=== PATIENT | female | born 1975 | race Caucasian/White ===

== ENCOUNTER → 2022-02-14 12:52 | Outpatient (CLI) | payer SELFPAY ==
--- NOTE | ~2022-02-14 | MM_ITS ---
EXAMINATION: MM screening [facility] BI w pooja HISTORY: Screening mammogram TECHNIQUE: Craniocaudal and mediolateral oblique 3-D tomosynthesis images were obtained and synthetic 2-D images were generated. CAD analysis was submitted and interpreted. COMPARISON: 03/17/2019 bilateral screening mammogram BREAST PARENCHYMAL COMPOSITION: There are scattered areas of fibroglandular density. FINDINGS: Stable fibroglandular asymmetry There is no evidence of suspicious mass, calcification, or architectural distortion to suggest malignancy in either breast. There has been no suspicious interva l change. IMPRESSION: 1. No mammographic evidence of malignancy. 2. Recommend routine screening mammography in one year. BI-RADS Category 2: Benign finding(s). Reviewed, dictated and finalized at location A.
== END ==
PROVIDERS: PCP Physician Assistant Medical; Visit Provider Nurse Practitioner
DX: Z12.31 Encounter for screening mammogram for malignant neoplasm of breast (principal)
CPT/HCPCS: 77063; 77067

== ENCOUNTER → 2023-06-08 12:13 | Outpatient (CLI) | payer SELFPAY ==
--- NOTE | ~2023-06-08 | MM_ITS ---
EXAMINATION: MM screening [facility] BI w pooja HISTORY: Screening TECHNIQUE: Craniocaudal and mediolateral oblique 3-D tomosynthesis images were obtained and synthetic 2-D images were generated. CAD analysis was submitted and interpreted. COMPARISON: Comparison to multiple prior studies sequentially, with oldest reviewed study dated 03/17. BREAST PARENCHYMAL COMPOSITION: There are scattered areas of fibroglandular density. FINDINGS: There is no evidence of suspicious mass, calcification, or architectural distortion to sugg est malignancy in either breast. There has been no suspicious interval change. IMPRESSION: 1. No mammographic evidence of malignancy. 2. Recommend routine screening mammography in one year. BI-RADS Category 1: Negative Reviewed, dictated and finalized at location A. 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
== END ==
PROVIDERS: PCP Nurse Practitioner; Visit Provider Nurse Practitioner
DX: Z12.31 Encounter for screening mammogram for malignant neoplasm of breast (principal)
CPT/HCPCS: 77063; 77067

== ENCOUNTER 2024-02-10 04:42 | Inpatient (IN) | payer OTHER, SELFPAY ==
[2024-02-10] VITALS (18 sets, daily range): BP systolic 130–183; BP diastolic 79–108; PULSE 78–103; RESP 16–18; TEMP 36.6–37.4; O2SAT 94–100; BMI 32.8
--- NOTE | ~2024-02-10 | XR_ITS ---
EXAMINATION: XR_FLGTUBINS_CR DATE: 02/10/2024 14:28 INDICATION: Small bowel obstruction. TECHNIQUE: I placed a nasogastric tube under fluoroscopic guidance. The fluoroscopy exposure time was 0.5 minutes. The number of images was 1. COMPARISON: CT abdomen and pelvis 02/10/2024 FINDINGS: The nasogastric tube tip is in the stomach. IMPRESSION: 1. Fluoroscopy guided nasogastric tube placement with tip in the stomach. Reviewed, dictated and finalized at location A.
--- NOTE | ~2024-02-10 | CT_ITS ---
EXAMINATION: CT abdomen pelvis w con DATE: 02/10/2024 06:39 INDICATION: Upper abdominal pain. Nausea, vomiting, and diarrhea. TECHNIQUE: Computed tomography (CT) of the abdomen and pelvis was performed with 100 mL Omnipaque 350 intravenous contrast. Automated exposure control and iterative reconstruction technique were employe d. The dose-length product was 617.00 mGy-cm. COMPARISON: None. FINDINGS: The visualized portions of the lung bases demonstrate mild atelectasis. No pleural effusion . The heart size is normal. No pericardial effusion. There is a small sliding hiatal hernia. The live r, gallbladder, spleen, pancreas, adrenal glands, and right kidney are normal. There is a 5 mm cyst i n left kidney. There are bilateral inguinal hernias containing fat. There is a 3.2 cm cyst in left ov stan, likely a follicular cyst. The appendix is normal. There are multiple dilated loops of bowel with transition point in the terminal ileum. There are no pathologically enlarged lymph nodes. There is n o free intraperitoneal fluid. There is mild thoracic spondylosis. IMPRESSION: 1. Small bowel obstruction with transition point in the terminal ileum. Reviewed, dictated and finalized at location A.
--- NOTE | ~2024-02-10 | XR_ITS ---
XR abdomen obstructive series Ordering provider: Titus Arriola MD History: . PARTIAL SBO . Comparison: None. FINDINGS: BOWEL: Nasogastric tube is seen with the tip into the duodenum. Nonobstructive bowel gas pattern. ORGANOMEGALY: None. SIGNIFICANT PATHOLOGIC CALCIFICATIONS: None. OTHER: Atelectatic changes in the lung bases. No free air is seen under the diaphragm. IMPRESSION: NO ACUTE ABDOMINAL FINDINGS. Reviewed, dictated and finalized at location A.
--- NOTE | ~2024-02-10 | XR_ITS ---
EXAMINATION: XR sm bowel follow through DATE: 02/12/2024 12:07 INDICATION: Small bowel obstruction. TECHNIQUE: Oral contrast was administered, and a time course of radiographs of the abdomen was obtain ed. Fluoroscopy of the small bowel was noted performed. Fluoroscopy exposure time was 0 minutes. The total number of images was 6. COMPARISON: CT abdomen and pelvis 02/10/2024 FINDINGS: The nasogastric tube tip is in the stomach. There are multiple dilated loops of small bowel. Transit time from the stomach to proximal colon was approximately 3 hours. IMPRESSION: 1. Dilated small bowel with delayed passage of contrast to the colon, consistent with distal partial obstruction versus adynamic ileus. Reviewed, dictated and finalized at location A. IMPRESSION: 1. Dilated small bowel with delayed passage of contrast to the colon, consisten t with distal partial obstruction versus adynamic ileus.
[2024-02-10 05:21] LABS: Basophils Absolute Auto 0.1 K/mm3 (0.0-0.1); Basophils Percent Auto 0.5 % (0.2-1.2); Eosinophils Absolute Auto 0.1 K/mm3 (0-0.3); Eosinophils Percent Auto 0.9 % (0-4.4); Hematocrit 43.4 % (37.0-47.0); Hemoglobin 14.5 g/dL (12.0-15.0); Immature Granulocyte Absolute 0.04 K/mm3 (0.00-0.031); Immature Granulocyte Percent A 0.4 % (0-0.5); Lymphocytes Absolute Auto 1.04 K/mm3 (0.9-3.2); Lymphocytes Percent Auto 10.3 % (18.3-44.2); Mean Corpuscular HGB Conc 33.4 g/dl (32-36); Mean Corpuscular Volume 89.9 fl (80-100); Mean Platelet Volume 10.2 fl (7.4-10.4); Monocytes Absolute Auto 0.5 K/mm3 (0.1-0.6); Monocytes Percent Auto 4.5 % (2.6-8.5); Neutrophils Absolute Auto 8.4 K/mm3 (1.3-6.7); Neutrophils Percent Auto 83.4 % (45.5-73.1); Platelet Count Result 242 k/mm3 (150-375); Red Blood Count 4.83 M/mm3 (4.2-5.4); Red Cell Distribution Width 13.7 % (11.5-14.5); White Blood Count 10.1 K/mm3 (4.5-10.0)
[2024-02-10] MEDS: METOCLOPRAMIDE HCL INJ 10 MG/2 ML VIAL IV PUSH (05:25)
[2024-02-10] MEDS: diphenhydrAMINE HCl INJ 50 MG/ML VIAL 25 MG IV PUSH (05:25)
--- NOTE | 2024-02-10 05:29 | ED.NAVMDI ---
HPI - Nausea/Vomiting/Diarrhea General Chief complaint: Nausea/Vomiting/Diarrhea <Nahum Almaguer MD - Last Filed: 02/21/24 22:49> Stated complaint: n/v <Nahum Almaguer MD - Last Filed: 02/21/24 22:49> Time Seen by Provider: 02/10/24 04:47 <Nahum Almaguer MD - Last Filed: 02/21/24 22:49> History of Present Illness HPI Narrative: This is a 49-year-old female with a past medical history significant for prior pancreatitis from drinking. Today she presents to the emergency room with a chief complaint of sudden onset epigastric abdominal pain, nauseousness, vomiting and slight diarrhea. Patient states the abdominal pain was all of a sudden last night. She did have a glass of wine prior to the onset. She states she started waking up and developing nauseousness with persistent vomiting as well as chills. She had an episode diarrhea earlier today as well. Denies any new foods, medication changes, illnesses or injuries. She is otherwise in her normal state of health and no one at home has similar symptoms. Denies any chest pain, shortness a breath, headache, vision changes, neuropathy, weakness or fatigue. No recent travel. Endorses having abdominal surgeries with a but otherwise has all her organs. <Nahum Almaguer MD - Last Filed: 02/21/24 22:49> Related Data Home medications: Home Medications Medication Instructions Recorded Confirmed ferrous sulfate 324 mg (65 mg 324 mg PO DAILY 05/14/22 02/10/24 iron) tablet,delayed release <Nahum Almaguer MD - Last Filed: 02/21/24 22:49> Allergies/Adverse reactions: Allergies Allergy/AdvReac Type Severity Reaction Status Date / Time prochlorperazine Allergy Severe Muscle Verified 02/10/24 05:25 Spasms <Nahum Almaguer MD - Last Filed: 02/21/24 22:49> Review of Systems Review of Systems: As reviewed above in HPI <Nahum Almaguer MD - Last Filed: 02/21/24 22:49> [facility] Past Medical History Medical History: Medical History Anemia Anxiety Anxiety delivery delivered x3 Chronic daily headache began in her teens Gestational hypertension HTN (hypertension), benign <Nahum Almaguer MD - Last Filed: 02/21/24 22:49> Family History Family History: Family History Father Diabetes mellitus Mother Hypertension Grandparent Cerebrovascular accident Mother Hypertension Father Family history of diabetes mellitus in first degree relative <Nahum Almaguer MD - Last Filed: 02/21/24 22:49> Social History Social History: Social History Social History: Patient denies tobacco or drug use. Alcohol use as mentioned above. She lives at home with her and 3 children. Full code. She nominates her to be the individual who would make medical decisions for her if she is unable. 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 Mucous membranes moist. NECK: Supple. CHEST: [Clear to auscultation. No respiratory distress.] HEART: [Regular rate and rhythm]. No murmur heard. [Normal peripheral pulses.] ABDOMEN: [Soft, nondistended], reproducible tenderness to palpation in the epigastrium, left flank tenderness, CVA tenderness, [No rigidity or guarding] EXTREMITIES: Normal range of motion. [No edema.] SKIN: Warm, dry, no rash. NEURO: [No focal deficits]. Alert and oriented [x3.] PSYCH: [Normal mood and affect.] <Nahum Almaguer MD - Last Filed: 02/21/24 22:49> Course Vital Signs Vital signs: Vital Signs Temperature 36.6 C 02/10/24 04:59 Pulse Rate 78 02/10/24 04:59 Respiratory Rate 16 02/10/24 04:59 Blood Pressure 178/107 H 02/10/24 04:59 Pulse Oximetry 100 02/10/24 04:59 Oxygen Delivery Room Air 02/10/24 04:59 Temperature 36.7 C 02/14/24 14:00 Pulse Rate 62 02/14/24 14:00 Respiratory Rate 18 02/14/24 14:00 Blood Pressure 119/78 02/14/24 14:00 Pulse Oximetry 100 02/14/24 14:00 Oxygen Delivery Room Air 02/14/24 09:26 <Nahum Almaguer MD - Last Filed: 02/21/24 22:49> Vital Signs Temperature 36.6 C 02/10/24 04:59 Pulse Rate 78 02/10/24 04:59 Respiratory Rate 16 02/10/24 04:59 Blood Pressure 178/107 H 02/10/24 04:59 Pulse Oximetry 100 02/10/24 04:59 Oxygen Delivery Room Air 02/10/24 04:59 Temperature 36.7 C 02/14/24 14:00 Pulse Rate 62 02/14/24 14:00 Respiratory Rate 18 02/14/24 14:00 Blood Pressure 119/78 02/14/24 14:00 Pulse Oximetry 100 02/14/24 14:00 Oxygen Delivery Room Air 02/14/24 09:26 <Ashely Gross MD - Last Filed: 02/10/24 08:34> MDM - Nausea/Vomiting/Diarrhea MDM Narrative Medical decision making narrative: This is a 49-year-old female with a history of previous pancreatitis who presents to the emergency department for nausea, vomiting, epigastric abdominal pain. Patient is retching throughout the encounter and has multiple episodes of vomiting. She has tenderness in the epigastrium as well as CVA tenderness on left side but denies any urinary complaints or vaginal issues. No fever, chills, other infectious symptoms. No at home with similar symptoms. Differential diagnosis at this time includes gastroenteritis, gastritis, food poisoning, cyclic vomiting, less likely pancreatitis or other intra-abdominal process. CBC, CMP, lipase, test, UA and CT abdomen pelvis was ordered. She is given Reglan Benadryl and hydromorphone for symptomatic control. Patient CT abdomen pelvis shows a small bowel obstruction with transition point at the terminal ileum. Patient was re-evaluated she had improvement from a nausea and pain perspective. I have paged out the general surgeon to discuss case management with them. NG tube was ordered for low intermittent suctioning. Patient was signed out at 7:[address] Gross pending consultation to surgery and admission to the hospital. <Nahum Almaguer MD - Last Filed: 02/21/24 22:49> This is a 49-year-old female with a history of previous pancreatitis who presents to the emergency department for nausea, vomiting, epigastric abdominal pain. Patient is retching throughout the encounter and has multiple episodes of vomiting. She has tenderness in the epigastrium as well as CVA tenderness on left side but denies any urinary complaints or vaginal issues. No fever, chills, other infectious symptoms. No at home with similar symptoms. Differential diagnosis at this time includes gastroenteritis, gastritis, food poisoning, cyclic vomiting, less likely pancreatitis or other intra-abdominal process. CBC, CMP, lipase, test, UA and CT abdomen pelvis was ordered. She is given Reglan Benadryl and hydromorphone for symptomatic control. Patient CT abdomen pelvis shows a small bowel obstruction with transition point at the terminal ileum. Patient was re-evaluated she had improvement from a nausea and pain perspective. I have paged out the general surgeon to discuss case management with them. NG tube was ordered for low intermittent suctioning. Patient was signed out at 7:[address] Gross pending consultation to surgery and admission to the hospital. Patient declined NG tube placement and was adamant about it. Dr. Wilosn was notified <Ashely Gross MD - Last Filed: 02/10/24 08:34> Lab Data Result diagrams: 02/11/24 05:52 02/13/24 05:21 <Nahum Almaguer MD - Last Filed: 02/21/24 22:49> Labs: Lab Results 02/10/24 02/10/24 02/10/24 Range/Units 05:11 05:12 06:16 WBC 10.1 H (4.5-10.0) K/mm3 RBC 4.83 (4.2-5.4) M/mm3 Hgb 14.5 (12.0-15.0) g/dL Hct 43.4 (37.0-47.0) % MCV 89.9 (80-100) fl MCH 30.0 (26-34) pg MCHC 33.4 (32-36) g/dl RDW 13.7 (11.5-14.5) % Plt Count 242 (150-375) k/mm3 MPV 10.2 (7.4-10.4) fl Immature Gran % (Auto) 0.4 (0-0.5) % Neut % (Auto) 83.4 H (45.5-73.1) % Lymph % (Auto) 10.3 L (18.3-44.2) % Gaines % (Auto) 4.5 (2.6-8.5) % Eos % (Auto) 0.9 (0-4.4) % Baso % (Auto) 0.5 (0.2-1.2) % Lymph # (Auto) 1.04 (0.9-3.2) K/mm3 Gaines # (Auto) 0.5 (0.1-0.6) K/mm3 Eos # (Auto) 0.1 (0-0.3) K/mm3 Baso # (Auto) 0.1 (0.0-0.1) K/mm3 Abs Immat Gran (auto) 0.04 H (0.00-0.031) K/mm3 Absolute Neuts (auto) 8.4 H (1.3-6.7) K/mm3 Absolute Nucleated RBC 0.000 (0.0-0.012) K/mm3 Nucleated RBC % 0.0 (0.0-0.2) % Sodium 136 L (137-145) mmol/L Potassium 4.1 (3.4-5.0) mmol/L Chloride 103 (98-107) mmol/L Carbon Dioxide 22 (22-30) mmol/L Anion Gap 11 (4-12) mmol/L BUN 13 (7-17) mg/dL Creatinine 0.80 (0.7-1.0) mg/dL Estim Creat Clear Calc 78 ml/min Estimated GFR > 60 (59 - ) Glucose 145 H (65-110) mg/dL Calcium 10.4 H (8.4-10.2) mg/dL Total Bilirubin 0.4 (0.2-1.3) mg/dL AST 24 (14-36) U/L ALT 16 (6-35) U/L Alkaline Phosphatase 72 (38-126) U/L Total Protein 8.0 (6.3-8.2) g/dL Albumin 4.8 (3.5-5.1) g/dL Lipase 71 (23-300) U/L Urine Color (Yellow) Urine Appearance (Clear) Urine pH (5.0-9.0) Ur Specific [place] (1.001-1.035) Urine Protein (Negative) mg/dL Urine Glucose (UA) (Negative) mg/dL Urine Ketones (Negative) mg/dL Ur Blood (Man) (Negative) Urine Nitrate (Negative) Urine Bilirubin (Negative) Urine Urobilinogen (<2.0) mg/dL Leukocyte Esterase Rfl (Negative) MEAGHAN/UL Urine RBC (0-2) /hpf Urine WBC (0-3) /hpf Ur Squamous Epith Cells (Few) /hpf Urine Bacteria /hpf Urine Casts POC Urine HCG, Qual Negative POC Ur Preg QC Yes 02/10/24 Range/Units 06:17 WBC (4.5-10.0) K/mm3 RBC (4.2-5.4) M/mm3 Hgb (12.0-15.0) g/dL Hct (37.0-47.0) % MCV (80-100) fl MCH (26-34) pg MCHC (32-36) g/dl RDW (11.5-14.5) % Plt Count (150-375) k/mm3 MPV (7.4-10.4) fl Immature Gran % (Auto) (0-0.5) % Neut % (Auto) (45.5-73.1) % Lymph % (Auto) (18.3-44.2) % Gaines % (Auto) (2.6-8.5) % Eos % (Auto) (0-4.4) % Baso % (Auto) (0.2-1.2) % Lymph # (Auto) (0.9-3.2) K/mm3 Gaines # (Auto) (0.1-0.6) K/mm3 Eos # (Auto) (0-0.3) K/mm3 Baso # (Auto) (0.0-0.1) K/mm3 Abs Immat Gran (auto) (0.00-0.031) K/mm3 Absolute Neuts (auto) (1.3-6.7) K/mm3 Absolute Nucleated RBC (0.0-0.012) K/mm3 Nucleated RBC % (0.0-0.2) % Sodium (137-145) mmol/L Potassium (3.4-5.0) mmol/L Chloride (98-107) mmol/L Carbon Dioxide (22-30) mmol/L Anion Gap (4-12) mmol/L BUN (7-17) mg/dL Creatinine (0.7-1.0) mg/dL Estim Creat Clear Calc ml/min Estimated GFR (59 - ) Glucose (65-110) mg/dL Calcium (8.4-10.2) mg/dL Total Bilirubin (0.2-1.3) mg/dL AST (14-36) U/L ALT (6-35) U/L Alkaline Phosphatase (38-126) U/L Total Protein (6.3-8.2) g/dL Albumin (3.5-5.1) g/dL Lipase (23-300) U/L Urine Color Yellow (Yellow) Urine Appearance Clear (Clear) Urine pH 7.0 (5.0-9.0) Ur Specific [place] 1.020 (1.001-1.035) Urine Protein 1+ H (Negative) mg/dL Urine Glucose (UA) Negative (Negative) mg/dL Urine Ketones Trace H (Negative) mg/dL Ur Blood (Man) 2+ H (Negative) Urine Nitrate Negative (Negative) Urine Bilirubin Negative (Negative) Urine Urobilinogen 0.2 (<2.0) mg/dL Leukocyte Esterase Rfl Negative (Negative) MEAGHAN/UL Urine RBC 0-2 (0-2) /hpf Urine WBC 0-5 (0-3) /hpf Ur Squamous Epith Cells Few (Few) /hpf Urine Bacteria Rare /hpf Urine Casts 0-2 POC Urine HCG, Qual POC Ur Preg QC <Nahum Almaguer MD - Last Filed: 02/21/24 22:49> Lab Results 02/10/24 02/10/24 02/10/24 Range/Units 05:11 05:12 06:16 WBC 10.1 H (4.5-10.0) K/mm3 RBC 4.83 (4.2-5.4) M/mm3 Hgb 14.5 (12.0-15.0) g/dL Hct 43.4 (37.0-47.0) % MCV 89.9 (80-100) fl MCH 30.0 (26-34) pg MCHC 33.4 (32-36) g/dl RDW 13.7 (11.5-14.5) % Plt Count 242 (150-375) k/mm3 MPV 10.2 (7.4-10.4) fl Immature Gran % (Auto) 0.4 (0-0.5) % Neut % (Auto) 83.4 H (45.5-73.1) % Lymph % (Auto) 10.3 L (18.3-44.2) % Gaines % (Auto) 4.5 (2.6-8.5) % Eos % (Auto) 0.9 (0-4.4) % Baso % (Auto) 0.5 (0.2-1.2) % Lymph # (Auto) 1.04 (0.9-3.2) K/mm3 Gaines # (Auto) 0.5 (0.1-0.6) K/mm3 Eos # (Auto) 0.1 (0-0.3) K/mm3 Baso # (Auto) 0.1 (0.0-0.1) K/mm3 Abs Immat Gran (auto) 0.04 H (0.00-0.031) K/mm3 Absolute Neuts (auto) 8.4 H (1.3-6.7) K/mm3 Absolute Nucleated RBC 0.000 (0.0-0.012) K/mm3 Nucleated RBC % 0.0 (0.0-0.2) % Sodium 136 L (137-145) mmol/L Potassium 4.1 (3.4-5.0) mmol/L Chloride 103 (98-107) mmol/L Carbon Dioxide 22 (22-30) mmol/L Anion Gap 11 (4-12) mmol/L BUN 13 (7-17) mg/dL Creatinine 0.80 (0.7-1.0) mg/dL Estim Creat Clear Calc 78 ml/min Estimated GFR > 60 (59 - ) Glucose 145 H (65-110) mg/dL Calcium 10.4 H (8.4-10.2) mg/dL Total Bilirubin 0.4 (0.2-1.3) mg/dL AST 24 (14-36) U/L ALT 16 (6-35) U/L Alkaline Phosphatase 72 (38-126) U/L Total Protein 8.0 (6.3-8.2) g/dL Albumin 4.8 (3.5-5.1) g/dL Lipase 71 (23-300) U/L Urine Color (Yellow) Urine Appearance (Clear) Urine pH (5.0-9.0) Ur Specific [place] (1.001-1.035) Urine Protein (Negative) mg/dL Urine Glucose (UA) (Negative) mg/dL Urine Ketones (Negative) mg/dL Ur Blood (Man) (Negative) Urine Nitrate (Negative) Urine Bilirubin (Negative) Urine Urobilinogen (<2.0) mg/dL Leukocyte Esterase Rfl (Negative) MEAGHAN/UL Urine RBC (0-2) /hpf Urine WBC (0-3) /hpf Ur Squamous Epith Cells (Few) /hpf Urine Bacteria /hpf Urine Casts POC Urine HCG, Qual Negative POC Ur Preg QC Yes 02/10/24 Range/Units 06:17 WBC (4.5-10.0) K/mm3 RBC (4.2-5.4) M/mm3 Hgb (12.0-15.0) g/dL Hct (37.0-47.0) % MCV (80-100) fl MCH (26-34) pg MCHC (32-36) g/dl RDW (11.5-14.5) % Plt Count (150-375) k/mm3 MPV (7.4-10.4) fl Immature Gran % (Auto) (0-0.5) % Neut % (Auto) (45.5-73.1) % Lymph % (Auto) (18.3-44.2) % Gaines % (Auto) (2.6-8.5) % Eos % (Auto) (0-4.4) % Baso % (Auto) (0.2-1.2) % Lymph # (Auto) (0.9-3.2) K/mm3 Gaines # (Auto) (0.1-0.6) K/mm3 Eos # (Auto) (0-0.3) K/mm3 Baso # (Auto) (0.0-0.1) K/mm3 Abs Immat Gran (auto) (0.00-0.031) K/mm3 Absolute Neuts (auto) (1.3-6.7) K/mm3 Absolute Nucleated RBC (0.0-0.012) K/mm3 Nucleated RBC % (0.0-0.2) % Sodium (137-145) mmol/L Potassium (3.4-5.0) mmol/L Chloride (98-107) mmol/L Carbon Dioxide (22-30) mmol/L Anion Gap (4-12) mmol/L BUN (7-17) mg/dL Creatinine (0.7-1.0) mg/dL Estim Creat Clear Calc ml/min Estimated GFR (59 - ) Glucose (65-110) mg/dL Calcium (8.4-10.2) mg/dL Total Bilirubin (0.2-1.3) mg/dL AST (14-36) U/L ALT (6-35) U/L Alkaline Phosphatase (38-126) U/L Total Protein (6.3-8.2) g/dL Albumin (3.5-5.1) g/dL Lipase (23-300) U/L Urine Color Yellow (Yellow) Urine Appearance Clear (Clear) Urine pH 7.0 (5.0-9.0) Ur Specific [place] 1.020 (1.001-1.035) Urine Protein 1+ H (Negative) mg/dL Urine Glucose (UA) Negative (Negative) mg/dL Urine Ketones Trace H (Negative) mg/dL Ur Blood (Man) 2+ H (Negative) Urine Nitrate Negative (Negative) Urine Bilirubin Negative (Negative) Urine Urobilinogen 0.2 (<2.0) mg/dL Leukocyte Esterase Rfl Negative (Negative) MEAGHAN/UL Urine RBC 0-2 (0-2) /hpf Urine WBC 0-5 (0-3) /hpf Ur Squamous Epith Cells Few (Few) /hpf Urine Bacteria Rare /hpf Urine Casts 0-2 POC Urine HCG, Qual POC Ur Preg QC <Ashely Gross MD - Last Filed: 02/10/24 08:34> Critical Care Time Critical Care Time Critical Care Time: Yes <Ashely Gross MD - Last Filed: 02/10/24 08:34> Total Critical Care Time: 30 <Ashely Gross MD - Last Filed: 02/10/24 08:34> Discharge Plan Discharge Clinical Impression: SBO (small bowel obstruction) <Nahum Almaguer MD - Last Filed: 02/21/24 22:49> Patient Disposition: Still a Patient <Nahum Almaguer MD - Last Filed: 02/21/24 22:49> Condition: Stable <Nahum Almaguer MD - Last Filed: 02/21/24 22:49>
[2024-02-10 05:32] LABS: Alanine Aminotransferase 16 U/L (6-35); Albumin Level 4.8 g/dL (3.5-5.1); Alkaline Phosphatase 72 U/L (38-126); Anion Gap 11 mmol/L (4-12); Aspartate Amino Transferase 24 U/L (14-36); Bilirubin,Total 0.4 mg/dL (0.2-1.3); Blood Urea Nitrogen 13 mg/dL (7-17); Calcium 10.4 mg/dL (8.4-10.2); Carbon Dioxide 22 mmol/L (22-30); Chloride 103 mmol/L (98-107); Estimated CRCL calculation 78 ml/min; Estimated Glomerular Filt Rate > 60; Glucose 145 mg/dL (65-110); Lipase 71 U/L (23-300); Potassium 4.1 mmol/L (3.4-5.0); Sodium 136 mmol/L (137-145)
[2024-02-10] MEDS: LACTATED RINGERS 1,000 ML 999 ML IV CONT ×2 (05:48→07:21)
[2024-02-10] MEDS: HYDROmorphone HCL INJ (*CRX) 1 MG/ML SYR IV PUSH (05:49)
[2024-02-10 06:18] LABS: BEDSIDEPREGUCG Negative
[2024-02-10 07:12] LABS: Appearance Urine Clear (Clear); Bilirubin Urine Negative (Negative); Blood Urine 2+ (Negative); Color Urine Yellow (Yellow); Glucose Urine UA Negative (Negative); Ketones Urine Trace mg/dL (Negative); Nitrate Urine Negative (Negative); Protein Urine 1+ mg/dL (Negative)
[2024-02-10 07:13] LABS: Add Urine Microscopic? YES; Bacteria Urine Rare /hpf; Leukocyte Esterase Ur Negative LEU/UL (Negative); Non Pathogenic Casts 0-2; RBC Urine 0-2 /hpf (0-2); Squamous Epithelial Cell Urine Few /hpf (Few); Urobilinogen Urine 0.2 mg/dL (<2.0); WBC Urine 0-5 /hpf (0-3)
--- NOTE | 2024-02-10 07:35 | PC.NURSE ---
Attempted NG tube, tube was placed and patient refused to keep tube in place. NG tube removed at this time. MD Gross notified that patient refusing. patient to remain NPO.
[2024-02-10] MEDS: ONDANSETRON INJ 4 MG/2 ML VIAL IV PUSH ×2 (07:38→10:03)
[2024-02-10] MEDS: LORazepam INJ (*CRX) 2 MG/ML VIAL IV PUSH (07:54)
[2024-02-10] MEDS: SODIUM CHLORIDE 0.9% IV 1,000 ML 150 ML IV CONT (08:38)
--- NOTE | 2024-02-10 09:22 | PM.IMHP ---
H&P: HPI History of Present Illness Date/Time: 02/10/24 09:22 Chief Complaint: Abdominal pain Narrative: 49yo female with HTN and anxiety here for abdominal pain. She has had upper pain for the past few weeks. She has distended abdomen with bloating at times. She was able to tolerate oral intake without worsening of symptoms but did develop early satiety. She has occasional nausea but no vomiting. She has occasional chills but no fevers. No diarrhea, constipation, hematochezia or melana. She has never had a colonoscopy. She described the pain as dull and cramping at times. 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 She does drink 1 drink per day on average with her last drink being last night. Also of note is that she takes citalopram 20mg daily for anxiety for the past few years. She cut the dose back to 10 mg in an attempt to wean herself off of this. She noted that her anxiety symptoms increased over the past few days when she came off the citalopram completely. She has been feeling sad and blue at times but denies suicidal or homicidal ideation. No family history of IBD or IBS. Last evening she noted increasing abdominal pain. She had nausea with chills but then developed vomiting and diaphoresis. She had a soft bowel movement but no melena or hematochezia. Review systems was negative except her complaints of occasional tingling in the arms and dizziness since coming off of the citalopram. Specifically no chest pain, shortness of breath, palpitations, cough, dysuria or hematuria. She presented to the emergency room for evaluation. In the ED, she was hemodynamically stable. Blood pressure was elevated at 178/107. White count was 10 K, sodium 136, glucose 145 and calcium 10.4 otherwise CBC and CMP were normal. Urine test was negative. UA showed trace ketones, 2+ blood 1+ protein. CT of the abdomen pelvis with contrast showing bilateral inguinal hernias containing fat, 3.2 cm cyst in left ovary likely follicular and multiple dilated loops of small bowel with transition point in the terminal ileum. No pathologically enlarged lymph nodes. NG tube was attempted but this resulted in epistaxis and pain so patient refused further attempts. She was given Reglan, Benadryl, Dilaudid, Zofran, Ativan and started on IV fluids. General surgery was consulted out of the emergency room. [facility] She has not passed flatus since being in ED. Review of Systems Review of Systems: All systems reviewed & are unremarkable except as noted in HPI and below PMFSH Past Medical History Medical History (Updated 02/10/24 @ 09:37 by Titus Arriola MD) Anemia Anxiety Anxiety delivery delivered x3 Chronic daily headache began in her teens Gestational hypertension HTN (hypertension), benign Family History Family History Father Diabetes mellitus Mother Hypertension Grandparent Cerebrovascular accident Mother Hypertension Father Family history of diabetes mellitus in first degree relative Social History Social History (Updated 02/10/24 @ 09:37 by Titus Arriola MD) Social History: Patient denies tobacco or drug use. Alcohol use as mentioned above. She lives at home with her and 3 children. Full code. She nominates her to be the individual who would make medical decisions for her if she is unable. 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 Gender identity (if verbalized by the patient): Female Spiritual care concerns: No Meds Home Medications and Allergies Home Medications Medication Instructions Recorded Confirmed Type ferrous sulfate 324 mg (65 mg 324 mg PO DAILY 05/14/22 06/17/23 History iron) tablet,delayed release multivitamin 1 tablet PO DAILY 06/25/22 06/17/23 History citalopram 20 mg tablet 20 mg PO DAILY #90 tabs 06/17/23 06/17/23 Rx cyclobenzaprine 5 mg tablet See Rx Instructions PO QHS PRN 06/17/23 06/17/23 Rx muscle spasm #20 tabs ibuprofen 200 mg tablet 200 mg PO Q6H PRN headaches 06/17/23 06/17/23 History losartan 50 mg tablet 50 mg PO DAILY #30 tabs 01/14/24 02/10/24 Rx Allergies Allergy/AdvReac Type Severity Reaction Status Date / Time prochlorperazine Allergy Severe Muscle Verified 02/10/24 05:25 Spasms Vital Signs Vital Signs - 24 hr 02/10/24 04:59 02/10/24 04:59 02/10/24 05:02 Temperature 97.8 F Pulse Rate 78 Respiratory Rate 16 Blood Pressure 178/107 H Pulse Oximetry 100 100 100 Oxygen Delivery Room Air 02/10/24 05:17 02/10/24 05:46 02/10/24 06:44 Temperature Pulse Rate Respiratory Rate Blood Pressure 135/108 H 183/107 H Pulse Oximetry 99 Oxygen Delivery 02/10/24 06:45 02/10/24 06:46 02/10/24 06:47 Temperature Pulse Rate Respiratory Rate Blood Pressure 153/90 H 152/89 H Pulse Oximetry 100 99 99 Oxygen Delivery 02/10/24 07:12 02/10/24 07:15 02/10/24 07:16 Temperature Pulse Rate Respiratory Rate Blood Pressure 137/98 H Pulse Oximetry 99 98 98 Oxygen Delivery 02/10/24 07:18 02/10/24 08:30 02/10/24 08:31 Temperature Pulse Rate 103 H Respiratory Rate 16 Blood Pressure 130/87 Pulse Oximetry 100 94 94 Oxygen Delivery Exam Narrative: AF 97.8 130/87 103 16 94%ra Gen - well appearing female in no acute respiratory distress who is nontoxic-appearing lying semi recumbent in bed HEENT - normocephalic. Atraumatic. Pupils equal round and reactive. Extraocular motions intact. Sclera clear and anicteric. Nares patent. Oropharynx was poorly visualized. Small lesion near the tip of the tongue (chronic per pt). Moist mucous membranes. Tongue was midline. Palate galen symmetrically. No facial asymmetry. Neck - neck was supple. No dominant adenopathy, thyromegaly or masses. 2+ carotid upstrokes without bruits. Chest - lungs are clear to auscultation bilaterally. No wheezes or crackles. Breast exam was deferred. CV - heart was regular rate and rhythm. S1-S2. No murmurs gallops or rubs. Abd - abdomen was soft. Nondistended. Positive bowel sounds. No organomegaly or masses. Mild tenderness without guarding midline upper abdomen. Ext - no clubbing, cyanosis or edema. 2+ DP pulses bilaterally. Neuro - patient is alert and oriented x4. Strength is 5/5 in both upper and lower extremities. Cranial nerves 2-12 are intact. Speech is clear. Psych - normal mood and affect. Patient is pleasant and cooperative. Skin - warm and dry. No rashes noted. H&P: Results Labs Labs: Short CBC 02/10/24 Range/Units 05:11 WBC 10.1 H (4.5-10.0) K/mm3 Hgb 14.5 (12.0-15.0) g/dL Hct 43.4 (37.0-47.0) % Plt Count 242 (150-375) k/mm3 BMP 02/10/24 05:12 Sodium 136 L Potassium 4.1 Chloride 103 Carbon Dioxide 22 BUN 13 Creatinine 0.80 Glucose 145 H Calcium 10.4 H Liver Function 02/10/24 Range/Units 05:12 Total Bilirubin 0.4 (0.2-1.3) mg/dL AST 24 (14-36) U/L ALT 16 (6-35) U/L Alkaline Phosphatase 72 (38-126) U/L Albumin 4.8 (3.5-5.1) g/dL Urine 02/10/24 Range/Units 06:17 Urine Color Yellow (Yellow) Urine Appearance Clear (Clear) Urine pH 7.0 (5.0-9.0) Ur Specific [place] 1.020 (1.001-1.035) Urine Protein 1+ H (Negative) mg/dL Urine Glucose (UA) Negative (Negative) mg/dL Assessment and Plan Assessment and plan (1) SBO (small bowel obstruction): Code(s): K56.609 - Unspecified intestinal obstruction, unspecified as to partial versus complete obstruction Status: Acute Assessment and Plan: CT scan shows small bowel obstruction with transition point at the terminal ileum. Could be related to scarring from her C-sections. Could be related to inflammatory process such as viral illness or occult inflammatory bowel disease. No prior bowel symptoms to suggest IBD. She could not tolerate NG tube placement. She is not vomiting at this time so will hold off on placing this under fluoroscopy. Continue IV fluids. General surgery has consulted. Bowel rest. Increase activity. Repeat KUB in the morning. (2) HTN (hypertension), benign: Code(s): I10 - Essential (primary) hypertension Status: Acute Assessment and Plan: Patient with history of hypertension and is on losartan. She will be NPO for now. Will add IV hydralazine p.r.n.. Resume losartan when able. (3) Anxiety: Code(s): F41.9 - Anxiety disorder, unspecified Status: Acute Assessment and Plan: Patient with a history of anxiety. She has tapered herself off of citalopram but has had increasing anxiety symptoms. She wants to go back on citalopram at the 10 mg level. Resume citalopram when able. Ativan available as needed. (4) Ovarian cyst: Code(s): N83.209 - Unspecified ovarian cyst, unspecified side Status: Acute Assessment and Plan: Patient noted to have a left ovarian cyst most likely follicular. Plan DVT prophylaxis - Skyla score of 2. Increase activity. Code status -full
--- NOTE | 2024-02-10 10:55 | PC.NURSE ---
This patient, Jacey Bowens, was admitted to [facility] Surg Room 325-01. Patient/family oriented to hospital policies and general routines including ID bracelet, bed and alarms, visiting hours, pain management, procedures, bathroom and other care routines, personal items, smoking policy, room service/diet, and visiting hours. Information on how to activate the Rapid Response Team has been discussed. Patient/Family are encouraged to report perceived risks to care and to ask questions if they do not understand what they are told or what they should do.
--- NOTE | 2024-02-10 11:57 | P.CONS_ITS ---
Assessment and Plan Assessment and plan (1) SBO (small bowel obstruction): Code(s): K56.609 - Unspecified intestinal obstruction, unspecified as to partial versus complete obstruction Status: Acute Assessment and Plan: Patient appears to have a small bowel obstruction likely secondary to pelvic adhesions. She has had 3 prior C-sections in the past. This is the 1st episode of bowel obstruction. I did review the CT scan and agree that she likely has a small bowel obstruction due to adhesive disease as per the radiology reading. Clinically she has no evidence of acute surgical abdomen at this time although she presently refuses to have a nasogastric tube replaced and continues to have nausea and vomiting. I explained in great detail with a course of 20 to 30 minutes with the patient and her at the bedside that non operative initial management with the placement of the nasogastric tube bowel rest would be indicated at this time. If that did not result in resolution of the bowel obstruction then surgery may be indicated. At this time the patient is continued to decide whether she wants to have a nasogastric tube replaced. I spoke with the nurse and the patient agrees to have the nasogastric tube replaced will placement of the bedside. Otherwise if he continues to have the ongoing bowel obstruction and is not willing to try non operative management then proceeding to the operating room for an exploratory laparotomy adhesiolysis with possible bowel resection would be indicated. Will follow. HPI Data of Consult Date/Time: 02/10/24 11:57 Requesting Physician: Solo Arriola MD Primary Care Provider: Estrella Palmer PA-C Consult Narrative Reason for consult: Abdominal pain, small-bowel obstruction. Narrative: Jacey Bowens is a 49 year old female who was admitted through the emergency room today with a 1 day history of worsening lower abdominal pain associated nausea vomiting. Last evening she drinks wine and woke up later in the evening with nausea and episodes of emesis and profuse sweating. She has a prior history of pancreatitis from alcohol use. She has never had a small bowel obstruction in the past. White blood cell count was normal. Liver enzymes are normal. CT scan abdomen pelvis was performed showing multiple dilated loops of small bowel with fluid filling the bowels. No free air or perforation was seen. No abscess is seen. There appears to be a transition point in the terminal ileum. The patient has a history of 3 prior C-sections in the past which certainly could reasons for abdominal pelvic adhesions. She has never had a c olonoscopy in the past and never been admitted to the hospital for small bowel obstruction. Her last bowel movement was yesterday. She denies passing any flatus she started having the symptoms. She did have an NG tube placed in the emergency room which she removed because she was having a gagging sensation and pain from the NG tube. She has since refused to have the NG tube replaced. She had a couple episodes of bilious emesis well as talking to her in the room today. Review of Systems Review of Systems: The remainder of the review of systems to include constitutional, HEENT, cardiovascular, respiratory, GI, , integumentary, musculoskeletal, endocrine, immunologic, hematologic, psychiatric, and neurologic are all negative except for which is mentioned above in the HPI. [facility] Past Medical History Medical History Anemia Anxiety Anxiety delivery delivered x3 Chronic daily headache began in her teens Gestational hypertension HTN (hypertension), benign Family History Family History Father Diabetes mellitus Mother Hypertension Grandparent Cerebrovascular accident Mother Hypertension Father Family history of diabetes mellitus in first degree relative Social History Social History Social History: Patient denies tobacco or drug use. Alcohol use as mentioned above. She lives at home with her and 3 children. Full code. She nominates her to be the individual who would make medical decisions for her if she is unable. 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 Gender identity (if verbalized by the patient): Female Spiritual care concerns: No Meds Home Medications and Allergies Home Medications Medication Instructions Recorded Confirmed Type ferrous sulfate 324 mg (65 mg 324 mg PO DAILY 05/14/22 02/10/24 History iron) tablet,delayed release ibuprofen 200 mg tablet 200 mg PO Q6H PRN headaches 06/17/23 02/10/24 History losartan 50 mg tablet 50 mg PO DAILY #30 tabs 01/14/24 02/10/24 Rx Allergies Allergy/AdvReac Type Severity Reaction Status Date / Time prochlorperazine Allergy Severe Muscle Verified 02/10/24 05:25 Spasms Vital Signs Vital Signs - 24 hr 02/10/24 04:59 02/10/24 04:59 02/10/24 05:02 Temperature 36.6 C Pulse Rate 78 Respiratory Rate 16 Blood Pressure 178/107 H Pulse Oximetry 100 100 100 Oxygen Delivery Room Air 02/10/24 05:17 02/10/24 05:46 02/10/24 06:44 Temperature Pulse Rate Respiratory Rate Blood Pressure 135/108 H 183/107 H Pulse Oximetry 99 Oxygen Delivery 02/10/24 06:45 02/10/24 06:46 02/10/24 06:47 Temperature Pulse Rate Respiratory Rate Blood Pressure 153/90 H 152/89 H Pulse Oximetry 100 99 99 Oxygen Delivery 02/10/24 07:12 02/10/24 07:15 02/10/24 07:16 Temperature Pulse Rate Respiratory Rate Blood Pressure 137/98 H Pulse Oximetry 99 98 98 Oxygen Delivery 02/10/24 07:18 02/10/24 08:30 02/10/24 08:31 Temperature Pulse Rate 103 H Respiratory Rate 16 Blood Pressure 130/87 Pulse Oximetry 100 94 94 Oxygen Delivery 02/10/24 08:32 02/10/24 08:45 02/10/24 09:44 Temperature Pulse Rate 101 H Respiratory Rate 17 Blood Pressure 156/98 H Pulse Oximetry 94 94 96 Oxygen Delivery Exam Const: General: uncomfortable (Patient appears mildly uncomfortable from nausea and emesis) HENMT: Ears: TM's normal bilaterally Face/Nose/Sinus: Normal nares present Mouth: Yes moist mucous membranes Eyes: General: appearance normal, both eyes and all related structures Sclera: sclerae normal Pupils: Equal, round and reactive pupils present Neck: Neck: supple and no JVD Resp: Effort & Inspection: normal respiratory effort Auscultation: clear to auscultation bilaterally Cardio: Rate: regular rate Rhythm: regular rhythm GI: Other: Abdomen is [id number] distended. She has some mild diffuse tenderness but no rebound or guarding. Has a low transverse Pfannenstiel scar but no incisional hernia. She does have a small reducible umbilical hernia. No generalized peritoneal signs. Skin: General skin exam: normal color and no rashes or lesions noted Neuro: General: gait normal Speech: normal speech Motor exam (neuro): 5/5 motor strength present throughout Sensory Exam: normal sensation Extrem: General: normal to inspection Psych: Mental Status: mental status grossly normal Affect: normal affect Results Labs 02/10/24 05:11 02/10/24 05:12 Labs: Short CBC 02/10/24 Range/Units 05:11 WBC 10.1 H (4.5-10.0) K/mm3 Hgb 14.5 (12.0-15.0) g/dL Hct 43.4 (37.0-47.0) % Plt Count 242 (150-375) k/mm3 BMP 02/10/24 05:12 Sodium 136 L Potassium 4.1 Chloride 103 Carbon Dioxide 22 BUN 13 Creatinine 0.80 Glucose 145 H Calcium 10.4 H Liver Function 02/10/24 Range/Units 05:12 Total Bilirubin 0.4 (0.2-1.3) mg/dL AST 24 (14-36) U/L ALT 16 (6-35) U/L Alkaline Phosphatase 72 (38-126) U/L Albumin 4.8 (3.5-5.1) g/dL Urine 02/10/24 Range/Units 06:17 Urine Color Yellow (Yellow) Urine Appearance Clear (Clear) Urine pH 7.0 (5.0-9.0) Ur Specific [place] 1.020 (1.001-1.035) Urine Protein 1+ H (Negative) mg/dL Urine Glucose (UA) Negative (Negative) mg/dL Imaging Radiologist's impression: [place] [address] [place], [place] [id number] CT Scan Report Signed Patient: Jacey Bowens : 1975 MR#: [id number] Age: 49 Acct:[id number] Loc: [facility] ADM Date: 02/10/24Attending Dr: Ordering Physician: Nahum Almaguer MD Date of Service: 02/10/24 Procedure(s): CT abdomen pelvis w con Accession Number(s): [id number] cc: Estrella Palmer PA-C; Nahum Almaguer MD~ EXAMINATION: CT abdomen pelvis w con DATE: 02/10/2024 06:39 INDICATION: Upper abdominal pain. Nausea, vomiting, and diarrhea. TECHNIQUE: Computed tomography (CT) of the abdomen and pelvis was performed with 100 mL Omnipaque 350 intravenous contrast. Automated exposure control and iterative reconstruction technique were employed. The dose-length product was 617.00 mGy-cm. COMPARISON: None. FINDINGS: The visualized portions of the lung bases demonstrate mild atelectasis. No pleural effusion. The heart size is normal. No pericardial effusion. There is a small sliding hiatal hernia. The liver, gallbladder, spleen, pancreas, adrenal glands, and right kidney are normal. There is a 5 mm cyst in left kidney. There are bilateral inguinal hernias containing fat. There is a 3.2 cm cyst in left ovary, likely a follicular cyst. The appendix is normal. There are multiple dilated loops of bowel with transition point in the terminal ileum. There are no pathologically enlarged lymph nodes. There is no free intraperitoneal fluid. There is mild thoracic spondylosis. IMPRESSION: 1. Small bowel obstruction with transition point in the terminal ileum. Reviewed, dictated and finalized at location A.
[2024-02-10] MEDS: LORazepam INJ (*CRX) 2 MG/ML VIAL 1 MG IV PUSH (12:22)
[2024-02-10] MEDS: PANTOPRAZOLE SODIUM IV 40 MG VIAL IV PUSH (12:25)
[2024-02-10] MEDS: PIPERACILLN/TAZ 3.375GM/NS50ML 3.375 GM/50 ML BAG IVPB ×2 (16:54→21:08)
[2024-02-11] MEDS: IBUPROFEN IV 400 MG in SODIUM CHLORIDE 0.9% IV 100 ML 208 MG IVPB ×2 (03:20→16:17)
[2024-02-11] MEDS: SODIUM CHLORIDE 0.9% IV 1,000 ML 100 ML IV CONT (03:21)
[2024-02-11] MEDS: PIPERACILLN/TAZ 3.375GM/NS50ML 3.375 GM/50 ML BAG IVPB ×3 (05:25→21:30)
[2024-02-11 05:47] VITALS: BP 120/82; PULSE 77; RESP 20; TEMP 37; O2SAT 98
[2024-02-11 06:02] LABS: Basophils Percent Auto 0.5 % (0.2-1.2); Eosinophils Absolute Auto 0.1 K/mm3 (0-0.3); Eosinophils Percent Auto 0.8 % (0-4.4); Hematocrit 34.2 % (37.0-47.0); Hemoglobin 11.4 g/dL (12.0-15.0); Immature Granulocyte Absolute 0.01 K/mm3 (0.00-0.031); Immature Granulocyte Percent A 0.2 % (0-0.5); Lymphocytes Absolute Auto 1.25 K/mm3 (0.9-3.2); Lymphocytes Percent Auto 20.2 % (18.3-44.2); Mean Corpuscular HGB Conc 33.3 g/dl (32-36); Mean Corpuscular Hemoglobin 30.9 pg (26-34); Mean Corpuscular Volume 92.7 fl (80-100); Mean Platelet Volume 9.8 fl (7.4-10.4); Monocytes Absolute Auto 0.6 K/mm3 (0.1-0.6); Monocytes Percent Auto 10.2 % (2.6-8.5); Neutrophils Absolute Auto 4.2 K/mm3 (1.3-6.7); Neutrophils Percent Auto 68.1 % (45.5-73.1); Platelet Count Result 161 k/mm3 (150-375); Red Blood Count 3.69 M/mm3 (4.2-5.4); Red Cell Distribution Width 14.3 % (11.5-14.5); White Blood Count 6.2 K/mm3 (4.5-10.0)
[2024-02-11 06:13] LABS: Alanine Aminotransferase 10 U/L (6-35); Albumin Level 3.1 g/dL (3.5-5.1); Alkaline Phosphatase 43 U/L (38-126); Anion Gap 6 mmol/L (4-12); Aspartate Amino Transferase 25 U/L (14-36); Bilirubin,Total 0.6 mg/dL (0.2-1.3); Blood Urea Nitrogen 9 mg/dL (7-17); Calcium 7.7 mg/dL (8.4-10.2); Carbon Dioxide 25 mmol/L (22-30); Chloride 106 mmol/L (98-107); Estimated CRCL calculation 78 ml/min; Estimated Glomerular Filt Rate > 60; Glucose 92 mg/dL (65-110); Potassium 3.4 mmol/L (3.4-5.0); Sodium 137 mmol/L (137-145)
[2024-02-11] MEDS: KCL 20 MEQ/SW 100 ML 100 ML 50 MEQ IVPB (08:35)
[2024-02-11] MEDS: PANTOPRAZOLE SODIUM IV 40 MG VIAL IV PUSH (08:35)
[2024-02-11] MEDS: ENOXAPARIN 40 MG/0.4 ML SYRINGE SUB-Q (08:36)
--- NOTE | 2024-02-11 10:02 | WPDPN ---
Progress Note: A&P Assessment and Plan (1) SBO (small bowel obstruction): Code(s): K56.609 - Unspecified intestinal obstruction, unspecified as to partial versus complete obstruction Status: Acute Assessment and Plan: Patient appears to have a partial small-bowel obstruction. She is passing some flatus but no bowel movement yet. White blood count is normal and abdomen is much less distended with nasogastric tube in place. Continue nasogastric tube decompression today. Patient was instructed to get up and walk in the hallways in the nasogastric tube can be clamped well she is ambulating. May be later today we can start clamping trials and see if she can tolerate clamping of the nasogastric tube. Potassium is low and she is getting IV potassium replacement right now. Try to keep her potassium between 4.0 - 4.5. Subjective Date/time seen: 02/11/24 10:02 Interval history: Patient feels better today after placing a nasogastric tube yesterday afternoon to decompress her GI tract. It was able to be placed under fluoroscopic guidance. She is passing a little bit of flatus today but no bowel movement yet. No significant abdominal pain. Nausea has resolved. White blood cell count is normal. Potassium is low 3.4 but she is getting potassium replacement now. Exam HENMT: Other: Nasogastric tube in place. Nonbloody slightly bilious output. GI: Other: Abdomen is soft and minimally distended. Nontender to palpation throughout. Neuro: Speech: normal speech Sensory Exam: normal sensation Extrem: General: normal to inspection Psych: Mental Status: mental status grossly normal Affect: normal affect Objective Data Vital Signs Vital Signs: Vital Signs - 24 hr 02/10/24 21:08 02/11/24 05:47 02/11/24 08:00 Temperature 37.4 C 37.0 C Pulse Rate 89 77 Respiratory Rate 18 20 Blood Pressure 133/79 120/82 Pulse Oximetry 98 98 Oxygen Delivery Room Air Intake/Output Intake/Output: Intake & Output 02/08/24 02/09/24 02/10/24 02/11/24 23:59 23:59 23:59 23:59 Intake Total 2700 554 Output Total 650 Balance 2700 -96 Meds/Results Medications: Active Medications Generic Name Dose Route Start Last Admin Trade Name Freq PRN Reason Stop Dose Admin Benzocaine 1 lozenge 02/10/24 12:14 Benzocaine/Menthol (*Bkc) 18 Ea Lozenge PO PRN PRN Sore Throat Enoxaparin Sodium 40 mg 02/11/24 09:00 02/11/24 08:36 Enoxaparin 40 Mg/0.4 Ml Syringe SUB-Q 40 mg DAILY JOSH Administration Hydralazine HCl 10 mg 02/10/24 09:46 Hydralazine Hcl 20 Mg/Ml Vial IV PUSH Q8H PRN Blood Pressure - High Sodium Chloride 1,000 mls @ 100 mls/hr 02/10/24 08:30 02/11/24 03:42 Normal Saline Iv IV CONT Not Given .Q10H JOSH Piperacillin/Tazobactam/Dextrose 3.375 gm in 50 mls @ 100 mls/hr 02/10/24 13:00 02/11/24 05:55 Zosyn 3.375 Gm/Ns 50 Ml IVPB Infused Q8HR JOSH Infusion Ibuprofen 400 mg/ Sodium 104 mls @ 208 mls/hr 02/10/24 16:37 02/11/24 03:50 Chloride IVPB Infused Q6H PRN Infusion Pain Rated 4-6 Potassium Chloride 100 mls @ 50 mls/hr 02/11/24 09:00 02/11/24 08:35 Kcl 20 Meq/Sw 100 Ml IVPB 02/11/24 10:59 50 mls/hr ONCE ONE Administration Lorazepam 1 mg 02/10/24 12:13 02/10/24 12:22 Lorazepam Inj (*Crx) 2 Mg/Ml Vial IV PUSH 1 mg Q6H PRN Administration Anxiety Morphine Sulfate 2 mg 02/10/24 12:15 Morphine Sulfate (*Crx) 4 Mg/Ml Inj IV PUSH Q2H PRN Pain Rated 7-10 Ondansetron HCl 4 mg 02/10/24 08:30 02/10/24 10:03 Ondansetron Inj 4 Mg/2 Ml Vial IV PUSH 4 mg Q4H PRN Administration Nausea Pantoprazole Sodium 40 mg 02/11/24 09:00 02/11/24 08:35 Pantoprazole Sodium Iv 40 Mg Vial IV PUSH 40 mg QAM JOSH Administration Phenol 1 spray 02/10/24 12:34 Phenol/Sod Pheno [place] Martinez (*Bkc) MUCOUS MEM PRN PRN Sore Throat Radiology Results: ITS Impressions Abdomen/Pelvis CT 02/10/24 06:41 IMPRESSION: 1. Small bowel obstruction with transition point in the terminal ileum. NG Tube Placement 02/10/24 14:37 IMPRESSION: 1. Fluoroscopy guided nasogastric tube placement with tip in the stomach. Abdomen X-Ray 02/11/24 08:21 IMPRESSION: NO ACUTE ABDOMINAL FINDINGS. Labs Labs: Laboratory Results - last 24 hr 02/11/24 05:52 WBC 6.2 RBC 3.69 L Hgb 11.4 L D Hct 34.2 L MCV 92.7 MCH 30.9 MCHC 33.3 RDW 14.3 Plt Count 161 MPV 9.8 Immature Gran % (Auto) 0.2 Neut % (Auto) 68.1 Lymph % (Auto) 20.2 Carbon % (Auto) 10.2 H Eos % (Auto) 0.8 Baso % (Auto) 0.5 Lymph # (Auto) 1.25 Carbon # (Auto) 0.6 Eos # (Auto) 0.1 Baso # (Auto) 0.0 Abs Immat Gran (auto) 0.01 Absolute Neuts (auto) 4.2 Absolute Nucleated RBC 0.000 Nucleated RBC % 0.0 Sodium 137 Potassium 3.4 Chloride 106 Carbon Dioxide 25 Anion Gap 6 BUN 9 Creatinine 0.80 Estim Creat Clear Calc 78 Estimated GFR > 60 Glucose 92 Calcium 7.7 L Magnesium 2.0 Total Bilirubin 0.6 AST 25 ALT 10 Alkaline Phosphatase 43 Total Protein 6.0 L Albumin 3.1 L
--- NOTE | 2024-02-11 11:40 | PM.IMPN ---
Progress Note: A&P Assessment and Plan (1) SBO (small bowel obstruction): Code(s): K56.609 - Unspecified intestinal obstruction, unspecified as to partial versus complete obstruction Status: Acute Assessment and Plan: CT scan shows small bowel obstruction with transition point at the terminal ileum. Could be related to scarring from her C-sections. Could be related to inflammatory process such as viral illness or occult inflammatory bowel disease. No prior bowel symptoms to suggest IBD. She was able to tolerate NG tube placement. General surgery has consulted. KUB this morning shows normal bowel gas pattern. Continue bowel rest. Continue IV fluids. Replace potassium Bowel rest. Encouraged her to keep out of bed and ambulating as much as possible. (2) HTN (hypertension), benign: Code(s): I10 - Essential (primary) hypertension Status: Acute Assessment and Plan: Patient with history of hypertension and is on losartan. Patient's blood pressure was reviewed on 02/10 Blood pressure remains well controlled. Will continue to monitor. IV hydralazine available as needed. Resume losartan when able. (3) Anxiety: Code(s): F41.9 - Anxiety disorder, unspecified Status: Acute Assessment and Plan: Patient with a history of anxiety. She has tapered herself off of citalopram but has had increasing anxiety symptoms. She wants to go back on citalopram at the 10 mg level. Resume citalopram when able. Ativan available as needed. (4) Ovarian cyst: Code(s): N83.209 - Unspecified ovarian cyst, unspecified side Status: Acute Assessment and Plan: Patient noted to have a left ovarian cyst most likely follicular. Plan DVT prophylaxis - Skyla score of 2. Increase activity. Code status -full Subjective Date/time seen: 02/11/24 11:40 Interval history: 49yo female with HTN and anxiety here for abdominal pain. Feels better. Chest pain shortness of breath. Slept off and on. Passing flatus but no bowel movements. Walking in the halls. Exam Narrative: AF 98.6 120/82 77 20 98% ra Gen - NARD HEENT -NG tube secured Chest - CTA bilaterally, nml RR CV - RRR S1/S2 Abd - Soft, NT/ND, Positive BS Ext - No pedal edema Psych - Nml mood and affect Skin - Warm and dry Objective Data Vital Signs Vital Signs: Vital Signs - 24 hr 02/10/24 21:08 02/11/24 05:47 02/11/24 08:00 Temperature 99.4 F 98.6 F Pulse Rate 89 77 Respiratory Rate 18 20 Blood Pressure 133/79 120/82 Pulse Oximetry 98 98 Oxygen Delivery Room Air Intake/Output Intake/Output: Intake & Output 02/08/24 02/09/24 02/10/24 02/11/24 23:59 23:59 23:59 23:59 Intake Total 2700 554 Output Total 650 Balance 2700 -96 Meds/Results Medications: Active Medications Generic Name Dose Route Start Last Admin Trade Name Freq PRN Reason Stop Dose Admin Benzocaine 1 lozenge 02/10/24 12:14 Benzocaine/Menthol (*Bkc) 18 Ea Lozenge PO PRN PRN Sore Throat Enoxaparin Sodium 40 mg 02/11/24 09:00 02/11/24 08:36 Enoxaparin 40 Mg/0.4 Ml Syringe SUB-Q 40 mg DAILY JOSH Administration Hydralazine HCl 10 mg 02/10/24 09:46 Hydralazine Hcl 20 Mg/Ml Vial IV PUSH Q8H PRN Blood Pressure - High Piperacillin/Tazobactam/Dextrose 3.375 gm in 50 mls @ 100 mls/hr 02/10/24 13:00 02/11/24 05:55 Zosyn 3.375 Gm/Ns 50 Ml IVPB Infused Q8HR JOSH Infusion Ibuprofen 400 mg/ Sodium 104 mls @ 208 mls/hr 02/10/24 16:37 02/11/24 03:50 Chloride IVPB Infused Q6H PRN Infusion Pain Rated 4-6 Potassium Chloride/Sodium Chloride 1,000 mls @ 125 mls/hr 02/11/24 11:00 Kcl 20 Meq/0.45% Ns IV CONT .Q8H JOSH Lorazepam 1 mg 02/10/24 12:13 02/10/24 12:22 Lorazepam Inj (*Crx) 2 Mg/Ml Vial IV PUSH 1 mg Q6H PRN Administration Anxiety Morphine Sulfate 2 mg 02/10/24 12:15 Morphine Sulfate (*Crx) 4 Mg/Ml Inj IV PUSH Q2H PRN Pain Rated 7-10 Ondansetron HCl 4 mg 02/10/24 08:30 02/10/24 10:03 Ondansetron Inj 4 Mg/2 Ml Vial IV PUSH 4 mg Q4H PRN Administration Nausea Pantoprazole Sodium 40 mg 02/11/24 09:00 02/11/24 08:35 Pantoprazole Sodium Iv 40 Mg Vial IV PUSH 40 mg QAM JOSH Administration Phenol 1 spray 02/10/24 12:34 Phenol/Sod Pheno [place] Martinez (*Bkc) MUCOUS MEM PRN PRN Sore Throat Radiology Results: ITS Impressions Abdomen/Pelvis CT 02/10/24 06:41 IMPRESSION: 1. Small bowel obstruction with transition point in the terminal ileum. NG Tube Placement 02/10/24 14:37 IMPRESSION: 1. Fluoroscopy guided nasogastric tube placement with tip in the stomach. Abdomen X-Ray 02/11/24 08:21 IMPRESSION: NO ACUTE ABDOMINAL FINDINGS. Labs Labs: Laboratory Results - last 24 hr 02/11/24 05:52 WBC 6.2 RBC 3.69 L Hgb 11.4 L D Hct 34.2 L MCV 92.7 MCH 30.9 MCHC 33.3 RDW 14.3 Plt Count 161 MPV 9.8 Immature Gran % (Auto) 0.2 Neut % (Auto) 68.1 Lymph % (Auto) 20.2 [place] % (Auto) 10.2 H Eos % (Auto) 0.8 Baso % (Auto) 0.5 Lymph # (Auto) 1.25 [place] # (Auto) 0.6 Eos # (Auto) 0.1 Baso # (Auto) 0.0 Abs Immat Gran (auto) 0.01 Absolute Neuts (auto) 4.2 Absolute Nucleated RBC 0.000 Nucleated RBC % 0.0 Sodium 137 Potassium 3.4 Chloride 106 Carbon Dioxide 25 Anion Gap 6 BUN 9 Creatinine 0.80 Estim Creat Clear Calc 78 Estimated GFR > 60 Glucose 92 Calcium 7.7 L Magnesium 2.0 Total Bilirubin 0.6 AST 25 ALT 10 Alkaline Phosphatase 43 Total Protein 6.0 L Albumin 3.1 L
[2024-02-11] MEDS: LORazepam INJ (*CRX) 2 MG/ML VIAL 1 MG IV PUSH (12:33)
[2024-02-11] MEDS: KCL 20 MEQ/0.45% NS 1,000 ML 125 ML IV CONT ×2 (13:31→21:31)
[2024-02-11 14:00] VITALS: BP 141/82; PULSE 80; RESP 16; TEMP 36.7; O2SAT 99
[2024-02-11] MEDS: BENZOCAINE/MENTHOL (*BKC) 18 EA LOZENGE 1 LOZENGE PO (16:17)
[2024-02-11] MEDS: PHENOL/SOD PHENO SPRAY CHERRY (*BKC) 1 SPRAY MUCOUS MEM (16:18)
[2024-02-11 22:00] VITALS: BP 128/81; PULSE 82; RESP 20; TEMP 36.9; O2SAT 100
[2024-02-12] MEDS: PIPERACILLN/TAZ 3.375GM/NS50ML 3.375 GM/50 ML BAG IVPB ×2 (05:19→14:36)
[2024-02-12] MEDS: KCL 20 MEQ/0.45% NS 1,000 ML 125 ML IV CONT (05:21)
[2024-02-12 06:00] VITALS: BP 121/87; PULSE 83; RESP 20; TEMP 36.6; O2SAT 97
[2024-02-12 06:08] LABS: Anion Gap 11 mmol/L (4-12); Blood Urea Nitrogen 7 mg/dL (7-17); Calcium 8.1 mg/dL (8.4-10.2); Carbon Dioxide 20 mmol/L (22-30); Chloride 105 mmol/L (98-107); Estimated CRCL calculation 88 ml/min; Estimated Glomerular Filt Rate > 60; Glucose 72 mg/dL (65-110); Magnesium 2.1 mg/dL (1.6-2.3); Potassium 3.7 mmol/L (3.4-5.0); Sodium 136 mmol/L (137-145)
--- NOTE | 2024-02-12 08:09 | PC.NURSE ---
pt off the unit
--- NOTE | 2024-02-12 09:49 | P.PN_ITS ---
Progress Note: A&P Assessment and Plan (1) SBO (small bowel obstruction): Code(s): K56.609 - Unspecified intestinal obstruction, unspecified as to partial versus complete obstruction Status: Acute Assessment and Plan: Small-bowel obstruction appears to be partial. Still not have bowel movements yet. We will get a water-soluble small bowel follow-through study today. Hopefully this will be diagnostic and show that she has contrast into her colon in appropriate time which time the nasogastric tube can be removed since she would not have significant small-bowel obstruction. In addition she has quite a bit of stool in her colon and water-soluble contrast may promote having bowel movements be therapeutic as well. Continue supportive management for now. Subjective Date/time seen: 02/12/24 09:49 Interval history: Patient without any significant clinical changes. Still passing some flatus but no bowel movements. No fever. White blood count is still normal today. Potassium is up to 3.7 today. Nasogastric tube has been clamped most of the morning and had no nausea. Exam GI: Other: Abdomen is soft and stool load distended. Bowel sounds are noted. No significant tenderness to palpation throughout the abdomen. Objective Data Vital Signs Vital Signs: Vital Signs - 24 hr 02/11/24 14:00 02/11/24 22:00 02/12/24 06:00 Temperature 36.7 C 36.9 C 36.6 C Pulse Rate 80 82 83 Respiratory Rate 16 20 20 Blood Pressure 141/82 H 128/81 121/87 Pulse Oximetry 99 100 97 Intake/Output Intake/Output: Intake & Output 02/09/24 02/10/24 02/11/24 02/12/24 23:59 23:59 23:59 23:59 Intake Total 2700 2754 1029.2 Output Total 650 Balance 2700 2104 1029.2 Meds/Results Medications: Active Medications Generic Name Dose Route Start Last Admin Trade Name Freq PRN Reason Stop Dose Admin Benzocaine 1 lozenge 02/10/24 12:14 02/11/24 16:17 Benzocaine/Menthol (*Bkc) 18 Ea Lozenge PO 1 lozenge PRN PRN Administration Sore Throat Enoxaparin Sodium 40 mg 02/11/24 09:00 02/11/24 08:36 Enoxaparin 40 Mg/0.4 Ml Syringe SUB-Q 40 mg DAILY JOSH Administration Hydralazine HCl 10 mg 02/10/24 09:46 Hydralazine Hcl 20 Mg/Ml Vial IV PUSH Q8H PRN Blood Pressure - High Piperacillin/Tazobactam/Dextrose 3.375 gm in 50 mls @ 100 mls/hr 02/10/24 13:00 02/12/24 05:49 Zosyn 3.375 Gm/Ns 50 Ml IVPB Infused Q8HR JOSH Infusion Ibuprofen 400 mg/ Sodium 104 mls @ 208 mls/hr 02/10/24 16:37 02/11/24 16:17 Chloride IVPB 208 mls/hr Q6H PRN Administration Pain Rated 4-6 Potassium Chloride/Dextrose/Sod Cl 1,000 mls @ 100 mls/hr 02/12/24 07:30 Kcl 20 Meq/D5/0.9% Sod Chl IV CONT .Q10H JOSH Lorazepam 1 mg 02/10/24 12:13 02/11/24 12:33 Lorazepam Inj (*Crx) 2 Mg/Ml Vial IV PUSH 1 mg Q6H PRN Administration Anxiety Morphine Sulfate 2 mg 02/10/24 12:15 Morphine Sulfate (*Crx) 4 Mg/Ml Inj IV PUSH Q2H PRN Pain Rated 7-10 Ondansetron HCl 4 mg 02/10/24 08:30 02/10/24 10:03 Ondansetron Inj 4 Mg/2 Ml Vial IV PUSH 4 mg Q4H PRN Administration Nausea Pantoprazole Sodium 40 mg 02/11/24 09:00 02/11/24 08:35 Pantoprazole Sodium Iv 40 Mg Vial IV PUSH 40 mg QAM JOSH Administration Phenol 1 spray 02/10/24 12:34 02/11/24 16:18 Phenol/Sod Pheno [place] Martinez (*Bkc) MUCOUS MEM 1 spray PRN PRN Administration Sore Throat Radiology Results: ITS Impressions Abdomen/Pelvis CT 02/10/24 06:41 IMPRESSION: 1. Small bowel obstruction with transition point in the terminal ileum. NG Tube Placement 02/10/24 14:37 IMPRESSION: 1. Fluoroscopy guided nasogastric tube placement with tip in the stomach. Abdomen X-Ray 02/11/24 08:21 IMPRESSION: NO ACUTE ABDOMINAL FINDINGS. Labs Labs: Laboratory Results - last 24 hr 02/12/24 05:20 Sodium 136 L Potassium 3.7 Chloride 105 Carbon Dioxide 20 L Anion Gap 11 BUN 7 Creatinine 0.70 Estim Creat Clear Calc 88 Estimated GFR > 60 Glucose 72 Calcium 8.1 L Magnesium 2.1
--- NOTE | 2024-02-12 10:10 | PC.NURSE ---
Pt has returned to unit and its due to be off suction for one hour due to xray that will be done at that time.
[2024-02-12] MEDS: PANTOPRAZOLE SODIUM IV 40 MG VIAL IV PUSH (10:12)
[2024-02-12] MEDS: ENOXAPARIN 40 MG/0.4 ML SYRINGE SUB-Q (10:13)
--- NOTE | 2024-02-12 11:09 | PC.NURSE ---
pt returned back to unit and RN was informed not to hook her up to suction due to the contrast needing to be present. Pt will get picked up by radiology in one hour
--- NOTE | 2024-02-12 12:16 | PM.IMPN ---
Progress Note: A&P Assessment and Plan (1) SBO (small bowel obstruction): Code(s): K56.609 - Unspecified intestinal obstruction, unspecified as to partial versus complete obstruction Status: Acute Assessment and Plan: CT scan shows small bowel obstruction with transition point at the terminal ileum. Could be related to scarring from her C-sections. Could be related to inflammatory process such as viral illness or occult inflammatory bowel disease. She has been having prior bowel symptoms. She was able to tolerate NG tube placement. General surgery was consulted. KUB yesterday morning shows normal bowel gas pattern. SBFT series ordered. Continue bowel rest. Continue IV fluids. Encouraged her to ambulate as much as possible. Follow up on SBFT results (2) HTN (hypertension), benign: Code(s): I10 - Essential (primary) hypertension Status: Acute Assessment and Plan: Patient with history of hypertension and is on losartan. Patient's blood pressure was reviewed on 02/11 Blood pressure remains well controlled. Will continue to monitor. IV hydralazine available as needed. Resume losartan when able. (3) Anxiety: Code(s): F41.9 - Anxiety disorder, unspecified Status: Acute Assessment and Plan: Patient with a history of anxiety. She has tapered herself off of citalopram but has had increasing anxiety symptoms. She wants to go back on citalopram at the 10 mg level. Resume citalopram when able. Ativan available as needed. (4) Ovarian cyst: Code(s): N83.209 - Unspecified ovarian cyst, unspecified side Status: Acute Assessment and Plan: Patient noted to have a left ovarian cyst most likely follicular. Plan DVT prophylaxis - Lovenox added due to being tethered with NGT Code status -full Subjective Date/time seen: 02/12/24 12:16 Interval history: 49yo female with HTN and anxiety here for abdominal pain. No CP or SOB. Undergoing SBFT currently. Had small stool leakage in radiology and 2 diarrhea stools later. Still with crampy abdominal pain. Patient does have a hx of crampy abd pain causing her to be 'doubled over'. Walking in the halls. Exam Narrative: AF 98.0 121/87 83 20 97% ra Gen - NARD HEENT -NG tube secured Chest - CTA bilaterally, nml RR CV - RRR S1/S2 Abd - Soft, ND, mild diffuse tenderness. +BS Ext - No pedal edema Psych - Nml mood and affect Skin - Warm and dry Objective Data Vital Signs Vital Signs: Vital Signs - 24 hr 02/11/24 14:00 02/11/24 22:00 02/12/24 06:00 Temperature 98.1 F 98.4 F 98 F Pulse Rate 80 82 83 Respiratory Rate 16 20 20 Blood Pressure 141/82 H 128/81 121/87 Pulse Oximetry 99 100 97 Intake/Output Intake/Output: Intake & Output 02/09/24 02/10/24 02/11/24 02/12/24 23:59 23:59 23:59 23:59 Intake Total 2700 2754 1029.2 Output Total 650 Balance 2700 2104 1029.2 Meds/Results Medications: Active Medications Generic Name Dose Route Start Last Admin Trade Name Freq PRN Reason Stop Dose Admin Benzocaine 1 lozenge 02/10/24 12:14 02/11/24 16:17 Benzocaine/Menthol (*Bkc) 18 Ea Lozenge PO 1 lozenge PRN PRN Administration Sore Throat Enoxaparin Sodium 40 mg 02/11/24 09:00 02/12/24 10:13 Enoxaparin 40 Mg/0.4 Ml Syringe SUB-Q 40 mg DAILY JOSH Administration Hydralazine HCl 10 mg 02/10/24 09:46 Hydralazine Hcl 20 Mg/Ml Vial IV PUSH Q8H PRN Blood Pressure - High Piperacillin/Tazobactam/Dextrose 3.375 gm in 50 mls @ 100 mls/hr 02/10/24 13:00 02/12/24 05:49 Zosyn 3.375 Gm/Ns 50 Ml IVPB Infused Q8HR JOSH Infusion Ibuprofen 400 mg/ Sodium 104 mls @ 208 mls/hr 02/10/24 16:37 02/11/24 16:17 Chloride IVPB 208 mls/hr Q6H PRN Administration Pain Rated 4-6 Potassium Chloride/Dextrose/Sod Cl 1,000 mls @ 100 mls/hr 02/12/24 11:00 Kcl 20 Meq/D5/0.9% Sod Chl IV CONT .Q10H JOSH Lorazepam 1 mg 02/10/24 12:13 02/11/24 12:33 Lorazepam Inj (*Crx) 2 Mg/Ml Vial IV PUSH 1 mg Q6H PRN Administration Anxiety Morphine Sulfate 2 mg 02/10/24 12:15 Morphine Sulfate (*Crx) 4 Mg/Ml Inj IV PUSH Q2H PRN Pain Rated 7-10 Ondansetron HCl 4 mg 02/10/24 08:30 02/10/24 10:03 Ondansetron Inj 4 Mg/2 Ml Vial IV PUSH 4 mg Q4H PRN Administration Nausea Pantoprazole Sodium 40 mg 02/11/24 09:00 02/12/24 10:12 Pantoprazole Sodium Iv 40 Mg Vial IV PUSH 40 mg QAM JOSH Administration Phenol 1 spray 02/10/24 12:34 02/11/24 16:18 Phenol/Sod Pheno [place] Martinez (*Bkc) MUCOUS MEM 1 spray PRN PRN Administration Sore Throat Radiology Results: ITS Impressions Abdomen/Pelvis CT 02/10/24 06:41 IMPRESSION: 1. Small bowel obstruction with transition point in the terminal ileum. NG Tube Placement 02/10/24 14:37 IMPRESSION: 1. Fluoroscopy guided nasogastric tube placement with tip in the stomach. Abdomen X-Ray 02/11/24 08:21 IMPRESSION: NO ACUTE ABDOMINAL FINDINGS. Labs Labs: Laboratory Results - last 24 hr 02/12/24 05:20 Sodium 136 L Potassium 3.7 Chloride 105 Carbon Dioxide 20 L Anion Gap 11 BUN 7 Creatinine 0.70 Estim Creat Clear Calc 88 Estimated GFR > 60 Glucose 72 Calcium 8.1 L Magnesium 2.1
[2024-02-12] MEDS: KCL 20 MEQ/D5/0.9% SOD CHL 1,000 ML 100 ML IV CONT (13:40)
[2024-02-12 14:00] VITALS: BP 144/97; PULSE 85; RESP 16; TEMP 36.6; O2SAT 99
[2024-02-12] MEDS: IBUPROFEN IV 400 MG in SODIUM CHLORIDE 0.9% IV 100 ML 208 MG IVPB (17:53)
[2024-02-12] MEDS: LORazepam INJ (*CRX) 2 MG/ML VIAL 1 MG IV PUSH (18:58)
[2024-02-12 21:53] VITALS: BP 144/99; PULSE 76; RESP 22; TEMP 36.8; O2SAT 99
[2024-02-13] MEDS: KCL 20 MEQ/D5/0.9% SOD CHL 1,000 ML 100 ML IV CONT (01:15)
[2024-02-13] MEDS: IBUPROFEN IV 400 MG in SODIUM CHLORIDE 0.9% IV 100 ML 208 MG IVPB (04:15)
[2024-02-13 05:50] LABS: Anion Gap 7 mmol/L (4-12); Blood Urea Nitrogen 8 mg/dL (7-17); Calcium 8.6 mg/dL (8.4-10.2); Carbon Dioxide 22 mmol/L (22-30); Chloride 109 mmol/L (98-107); Estimated CRCL calculation 88 ml/min; Estimated Glomerular Filt Rate > 60; Glucose 92 mg/dL (65-110); Potassium 3.7 mmol/L (3.4-5.0); Sodium 138 mmol/L (137-145)
[2024-02-13 05:57] VITALS: BP 143/94; PULSE 70; RESP 20; TEMP 36.4; O2SAT 100
--- NOTE | 2024-02-13 10:43 | PM.IMPN ---
Progress Note: A&P Assessment and Plan (1) SBO (small bowel obstruction): Code(s): K56.609 - Unspecified intestinal obstruction, unspecified as to partial versus complete obstruction Status: Acute Assessment and Plan: CT scan shows small bowel obstruction with transition point at the terminal ileum. Could be related to scarring from her C-sections. Could be related to inflammatory process such as viral illness or occult inflammatory bowel disease. She has been having prior bowel symptoms. She was able to tolerate NG tube placement and placed to suction. General surgery was consulted. KUB showed normal bowel gas pattern. SBFT showing dilated small bowel with delayed passage of contrast to the colon, consistent with distal partial obstruction versus adynamic ileus. Had multiple BMs from the contrast but better today. Tolerating oral intake. Encouraged her to ambulate as much as possible. Remove NGT and advance diet if okay with surgery (2) HTN (hypertension), benign: Code(s): I10 - Essential (primary) hypertension Status: Acute Assessment and Plan: Patient with history of hypertension and is on losartan. Patient's blood pressure was reviewed on 02/12 Blood pressure remains reasonable well controlled. Will continue to monitor. IV hydralazine available as needed. Resume losartan when able. (3) Anxiety: Code(s): F41.9 - Anxiety disorder, unspecified Status: Acute Assessment and Plan: Patient with a history of anxiety. She has tapered herself off of citalopram but has had increasing anxiety symptoms. She wants to go back on citalopram at the 10 mg level. Resume citalopram when able. Ativan available as needed. (4) Ovarian cyst: Code(s): N83.209 - Unspecified ovarian cyst, unspecified side Status: Acute Assessment and Plan: Patient noted to have a left ovarian cyst most likely follicular. Plan DVT prophylaxis - Lovenox Code status -full Subjective Date/time seen: 02/13/24 10:43 Interval history: 49yo female with HTN and anxiety here for abdominal pain. Feels well. Tolerating clear diet. NGT has been clamped over night. No n/v. Up walking in halls. +BMs and has decreased in frequency. Exam Narrative: AF 97.5 143/95 70 20 100% ra Gen - NARD HEENT -NG tube secured and clamped Chest - CTA bilaterally, nml RR CV - RRR S1/S2 Abd - Soft, ND, NT. +BS Ext - No pedal edema Psych - Nml mood and affect Skin - Warm and dry Objective Data Vital Signs Vital Signs: Vital Signs - 24 hr 02/12/24 14:00 02/12/24 20:00 02/12/24 21:53 Temperature 97.9 F 98.3 F Pulse Rate 85 76 Respiratory Rate 16 22 H Blood Pressure 144/97 H 144/99 H Pulse Oximetry 99 99 Oxygen Delivery Room Air 02/13/24 05:57 Temperature 97.5 F L Pulse Rate 70 Respiratory Rate 20 Blood Pressure 143/94 H Pulse Oximetry 100 Oxygen Delivery Intake/Output Intake/Output: Intake & Output 02/10/24 02/11/24 02/12/24 02/13/24 23:59 23:59 23:59 23:59 Intake Total 2700 2858 2889.5 104 Output Total 650 Balance 2700 2208 2889.5 104 Meds/Results Medications: Active Medications Generic Name Dose Route Start Last Admin Trade Name Freq PRN Reason Stop Dose Admin Benzocaine 1 lozenge 02/10/24 12:14 02/11/24 16:17 Benzocaine/Menthol (*Bkc) 18 Ea Lozenge PO 1 lozenge PRN PRN Administration Sore Throat Enoxaparin Sodium 40 mg 02/11/24 09:00 02/12/24 10:13 Enoxaparin 40 Mg/0.4 Ml Syringe SUB-Q 40 mg DAILY JOSH Administration Hydralazine HCl 10 mg 02/10/24 09:46 Hydralazine Hcl 20 Mg/Ml Vial IV PUSH Q8H PRN Blood Pressure - High Ibuprofen 400 mg/ Sodium 104 mls @ 208 mls/hr 02/10/24 16:37 02/13/24 04:45 Chloride IVPB Infused Q6H PRN Infusion Pain Rated 4-6 Potassium Chloride/Dextrose/Sod Cl 1,000 mls @ 100 mls/hr 02/12/24 11:00 02/13/24 01:15 Kcl 20 Meq/D5/0.9% Sod Chl IV CONT 100 mls/hr .Q10H JOSH Administration Lorazepam 1 mg 02/10/24 12:13 02/12/24 18:58 Lorazepam Inj (*Crx) 2 Mg/Ml Vial IV PUSH 1 mg Q6H PRN Administration Anxiety Morphine Sulfate 2 mg 02/10/24 12:15 Morphine Sulfate (*Crx) 4 Mg/Ml Inj IV PUSH Q2H PRN Pain Rated 7-10 Ondansetron HCl 4 mg 02/10/24 08:30 02/10/24 10:03 Ondansetron Inj 4 Mg/2 Ml Vial IV PUSH 4 mg Q4H PRN Administration Nausea Pantoprazole Sodium 40 mg 02/11/24 09:00 02/12/24 10:12 Pantoprazole Sodium Iv 40 Mg Vial IV PUSH 40 mg QAM JOSH Administration Phenol 1 spray 02/10/24 12:34 02/11/24 16:18 Phenol/Sod Pheno [place] Martinez (*Bkc) MUCOUS MEM 1 spray PRN PRN Administration Sore Throat Radiology Results: ITS Impressions Abdomen/Pelvis CT 02/10/24 06:41 IMPRESSION: 1. Small bowel obstruction with transition point in the terminal ileum. NG Tube Placement 02/10/24 14:37 IMPRESSION: 1. Fluoroscopy guided nasogastric tube placement with tip in the stomach. Abdomen X-Ray 02/11/24 08:21 IMPRESSION: NO ACUTE ABDOMINAL FINDINGS. Small Bowel X-Ray 02/12/24 14:02 IMPRESSION: 1. Dilated small bowel with delayed passage of contrast to the colon, consistent with distal partial obstruction versus adynamic ileus. Labs Labs: Laboratory Results - last 24 hr 02/13/24 05:21 Sodium 138 Potassium 3.7 Chloride 109 H Carbon Dioxide 22 Anion Gap 7 BUN 8 Creatinine 0.70 Estim Creat Clear Calc 88 Estimated GFR > 60 Glucose 92 Calcium 8.6
[2024-02-13] MEDS: PANTOPRAZOLE SODIUM IV 40 MG VIAL IV PUSH (10:56)
[2024-02-13] MEDS: ENOXAPARIN 40 MG/0.4 ML SYRINGE SUB-Q (10:56)
--- NOTE | 2024-02-13 12:04 | P.PNGS_ITS ---
Progress Note: A&P Assessment and Plan (1) SBO (small bowel obstruction): Code(s): K56.609 - Unspecified intestinal obstruction, unspecified as to partial versus complete obstruction Status: Acute Plan * Trying clears with NG clamped this morning. Will see how patient tolerates clear liquid lunch. Possibly remove NG this afternoon if tolerating clears with NG clamped. If feeling more bloated or nauseated, might need to place NG back to suction and consider surgical intervention. Subjective Subjective Date/Time Seen: 02/13/24 12:04 Interval history: Bowels moving and passing flatus. Was feeling very hungry last night and this morning. After sipping on some juice and water, no longer feeling hungry and feeling kind of full. No nausea, minimal bloating. No abdominal pain. Exam GI: Inspection: non-distended GI Palp: Yes Soft to palpation, No Tenderness to palpation present (GI) and No Guarding due to palpation present (GI) Auscultation: normal bowel sounds Objective Data Vital Signs Vital Signs: Vital Signs - 24 hr 02/12/24 14:00 02/12/24 20:00 02/12/24 21:53 Temperature 36.6 C 36.8 C Pulse Rate 85 76 Respiratory Rate 16 22 H Blood Pressure 144/97 H 144/99 H Pulse Oximetry 99 99 Oxygen Delivery Room Air 02/13/24 05:57 02/13/24 08:00 Temperature 36.4 C L Pulse Rate 70 Respiratory Rate 20 Blood Pressure 143/94 H Pulse Oximetry 100 Oxygen Delivery Room Air Intake/Output Intake/Output: Intake & Output 02/10/24 02/11/24 02/12/24 02/13/24 23:59 23:59 23:59 23:59 Intake Total 2700 2858 2889.5 104 Output Total 650 Balance 2700 2208 2889.5 104 Meds/Results Medications: Active Medications Generic Name Dose Route Start Last Admin Trade Name Freq PRN Reason Stop Dose Admin Benzocaine 1 lozenge 02/10/24 12:14 02/11/24 16:17 Benzocaine/Menthol (*Bkc) 18 Ea Lozenge PO 1 lozenge PRN PRN Administration Sore Throat Enoxaparin Sodium 40 mg 02/11/24 09:00 02/13/24 10:56 Enoxaparin 40 Mg/0.4 Ml Syringe SUB-Q 40 mg DAILY JOSH Administration Hydralazine HCl 10 mg 02/10/24 09:46 Hydralazine Hcl 20 Mg/Ml Vial IV PUSH Q8H PRN Blood Pressure - High Ibuprofen 400 mg/ Sodium 104 mls @ 208 mls/hr 02/10/24 16:37 02/13/24 04:45 Chloride IVPB Infused Q6H PRN Infusion Pain Rated 4-6 Potassium Chloride/Dextrose/Sod Cl 1,000 mls @ 100 mls/hr 02/12/24 11:00 02/13/24 01:15 Kcl 20 Meq/D5/0.9% Sod Chl IV CONT 100 mls/hr .Q10H JOSH Administration Lorazepam 1 mg 02/10/24 12:13 02/12/24 18:58 Lorazepam Inj (*Crx) 2 Mg/Ml Vial IV PUSH 1 mg Q6H PRN Administration Anxiety Morphine Sulfate 2 mg 02/10/24 12:15 Morphine Sulfate (*Crx) 4 Mg/Ml Inj IV PUSH Q2H PRN Pain Rated 7-10 Ondansetron HCl 4 mg 02/10/24 08:30 02/10/24 10:03 Ondansetron Inj 4 Mg/2 Ml Vial IV PUSH 4 mg Q4H PRN Administration Nausea Pantoprazole Sodium 40 mg 02/11/24 09:00 02/13/24 10:56 Pantoprazole Sodium Iv 40 Mg Vial IV PUSH 40 mg QAM JOSH Administration Phenol 1 spray 02/10/24 12:34 02/11/24 16:18 Phenol/Sod Pheno [place] Martinez (*Bkc) MUCOUS MEM 1 spray PRN PRN Administration Sore Throat Radiology Results: ITS Impressions Abdomen/Pelvis CT 02/10/24 06:41 IMPRESSION: 1. Small bowel obstruction with transition point in the terminal ileum. NG Tube Placement 02/10/24 14:37 IMPRESSION: 1. Fluoroscopy guided nasogastric tube placement with tip in the stomach. Abdomen X-Ray 02/11/24 08:21 IMPRESSION: NO ACUTE ABDOMINAL FINDINGS. Small Bowel X-Ray 02/12/24 14:02 IMPRESSION: 1. Dilated small bowel with delayed passage of contrast to the colon, consistent with distal partial obstruction versus adynamic ileus. Labs Labs: Laboratory Results - last 24 hr 02/13/24 05:21 Sodium 138 Potassium 3.7 Chloride 109 H Carbon Dioxide 22 Anion Gap 7 BUN 8 Creatinine 0.70 Estim Creat Clear Calc 88 Estimated GFR > 60 Glucose 92 Calcium 8.6
[2024-02-13 14:00] VITALS: BP 140/93; PULSE 68; RESP 20; TEMP 37.1; O2SAT 99
[2024-02-13 21:20] VITALS: BP 159/95; PULSE 69; RESP 12; TEMP 37.3; O2SAT 100
[2024-02-14 06:00] VITALS: BP 145/82; PULSE 60; RESP 12; TEMP 37.1; O2SAT 99
[2024-02-14] MEDS: ENOXAPARIN 40 MG/0.4 ML SYRINGE SUB-Q (09:26)
[2024-02-14] MEDS: PANTOPRAZOLE SODIUM IV 40 MG VIAL IV PUSH (09:26)
--- NOTE | 2024-02-14 10:56 | P.PNIM_ITS ---
Progress Note: A&P Assessment and Plan (1) SBO (small bowel obstruction): Code(s): K56.609 - Unspecified intestinal obstruction, unspecified as to partial versus complete obstruction Status: Acute Assessment and Plan: CT scan shows small bowel obstruction with transition point at the terminal ileum. Could be related to scarring from her C-sections. Could be related to inflammatory process such as viral illness or occult inflammatory bowel disease. She has been having prior bowel symptoms. She was able to tolerate NG tube placement and placed to suction. General surgery was consulted. KUB showed normal bowel gas pattern. SBFT showing dilated small bowel with delayed passage of contrast to the colon, consistent with distal partial obstruction versus adynamic ileus. Had multiple BMs from the contrast but better today. Tolerating oral intake with clears. Encouraged her to ambulate as much as possible. Advance diet if okay with surgery (2) HTN (hypertension), benign: Code(s): I10 - Essential (primary) hypertension Status: Acute Assessment and Plan: Patient with history of hypertension and is on losartan. Patient's blood pressure was reviewed on 02/12 Blood pressure remains reasonable well controlled. Will continue to monitor. IV hydralazine available as needed. Resume losartan (3) Anxiety: Code(s): F41.9 - Anxiety disorder, unspecified Status: Acute Assessment and Plan: Patient with a history of anxiety. She has tapered herself off of citalopram but has had increasing anxiety symptoms. She wants to go back on citalopram at the 10 mg level. Patient would like to resume citalopram today. Ativan available as needed. (4) Ovarian cyst: Code(s): N83.209 - Unspecified ovarian cyst, unspecified side Status: Acute Assessment and Plan: Patient noted to have a left ovarian cyst most likely follicular. Plan DVT prophylaxis - Lovenox Code status -full Subjective Date/time seen: 02/14/24 10:56 Interval history: 49yo female with HTN and anxiety here for abdominal pain. NGT out yesterday. [place] clears. Walking in the halls. Still having 'gas pains'. Still having diarrhea but small volumes. Exam Narrative: AF 98.8 145/82 60 12 99% ra Gen - NARD Chest - CTA bilaterally, nml RR CV - RRR S1/S2 Abd - Soft, ND, NT. +BS Ext - No pedal edema Psych - Nml mood and affect Skin - Warm and dry Objective Data Vital Signs Vital Signs: Vital Signs - 24 hr 02/13/24 14:00 02/13/24 20:36 02/13/24 21:20 Temperature 98.7 F 99.2 F Pulse Rate 68 69 Respiratory Rate 20 12 Blood Pressure 140/93 H 159/95 H Pulse Oximetry 99 100 Oxygen Delivery Room Air 02/14/24 06:00 02/14/24 09:26 Temperature 98.8 F Pulse Rate 60 Respiratory Rate 12 Blood Pressure 145/82 H Pulse Oximetry 99 Oxygen Delivery Room Air Intake/Output Intake/Output: Intake & Output 02/11/24 02/12/24 02/13/24 02/14/24 23:59 23:59 23:59 23:59 Intake Total 2858 2889.5 914 930 Output Total 650 Balance 2208 2889.5 914 930 Meds/Results Medications: Active Medications Generic Name Dose Route Start Last Admin Trade Name Freq PRN Reason Stop Dose Admin Benzocaine 1 lozenge 02/10/24 12:14 02/11/24 16:17 Benzocaine/Menthol (*Bkc) 18 Ea Lozenge PO 1 lozenge PRN PRN Administration Sore Throat Enoxaparin Sodium 40 mg 02/11/24 09:00 02/14/24 09:26 Enoxaparin 40 Mg/0.4 Ml Syringe SUB-Q 40 mg DAILY JOSH Administration Hydralazine HCl 10 mg 02/10/24 09:46 Hydralazine Hcl 20 Mg/Ml Vial IV PUSH Q8H PRN Blood Pressure - High Ibuprofen 400 mg/ Sodium 104 mls @ 208 mls/hr 02/10/24 16:37 02/13/24 04:45 Chloride IVPB Infused Q6H PRN Infusion Pain Rated 4-6 Lorazepam 1 mg 02/10/24 12:13 02/12/24 18:58 Lorazepam Inj (*Crx) 2 Mg/Ml Vial IV PUSH 1 mg Q6H PRN Administration Anxiety Morphine Sulfate 2 mg 02/10/24 12:15 Morphine Sulfate (*Crx) 4 Mg/Ml Inj IV PUSH Q2H PRN Pain Rated 7-10 Ondansetron HCl 4 mg 02/10/24 08:30 02/10/24 10:03 Ondansetron Inj 4 Mg/2 Ml Vial IV PUSH 4 mg Q4H PRN Administration Nausea Pantoprazole Sodium 40 mg 02/11/24 09:00 02/14/24 09:26 Pantoprazole Sodium Iv 40 Mg Vial IV PUSH 40 mg QAM JOSH Administration Phenol 1 spray 02/10/24 12:34 02/11/24 16:18 Phenol/Sod Pheno [place] Martinez (*Bkc) MUCOUS MEM 1 spray PRN PRN Administration Sore Throat Radiology Results: ITS Impressions Abdomen/Pelvis CT 02/10/24 06:41 IMPRESSION: 1. Small bowel obstruction with transition point in the terminal ileum. NG Tube Placement 02/10/24 14:37 IMPRESSION: 1. Fluoroscopy guided nasogastric tube placement with tip in the stomach. Abdomen X-Ray 02/11/24 08:21 IMPRESSION: NO ACUTE ABDOMINAL FINDINGS. Small Bowel X-Ray 02/12/24 14:02 IMPRESSION: 1. Dilated small bowel with delayed passage of contrast to the colon, consistent with distal partial obstruction versus adynamic ileus.
[2024-02-14] MEDS: CITALOPRAM HYDROBROMIDE 10 MG TABLET PO (11:32)
[2024-02-14] MEDS: LOSARTAN POTASSIUM 50 MG TABLET PO (11:32)
--- NOTE | 2024-02-14 11:50 | PM.PNGS ---
Progress Note: A&P Assessment and Plan (1) SBO (small bowel obstruction): Code(s): K56.609 - Unspecified intestinal obstruction, unspecified as to partial versus complete obstruction Status: Acute Plan NG removed yesterday. Tolerating clears. Advance to full liquids. OK to go home this evening if no bloating or nausea. If having recurrent symptoms, will have to keep here and consider surgery for persistent bowel obstruction. Subjective Subjective Date/Time Seen: 02/14/24 11:50 Interval history: Tolerating clear liquids. Bowels moving. No abdominal pain. Exam GI: Inspection: non-distended GI Palp: Yes Soft to palpation, No Tenderness to palpation present (GI) and No Guarding due to palpation present (GI) Auscultation: normal bowel sounds Objective Data Vital Signs Vital Signs: Vital Signs - 24 hr 02/13/24 14:00 02/13/24 20:36 02/13/24 21:20 Temperature 37.1 C 37.3 C Pulse Rate 68 69 Respiratory Rate 20 12 Blood Pressure 140/93 H 159/95 H Pulse Oximetry 99 100 Oxygen Delivery Room Air 02/14/24 06:00 02/14/24 09:26 Temperature 37.1 C Pulse Rate 60 Respiratory Rate 12 Blood Pressure 145/82 H Pulse Oximetry 99 Oxygen Delivery Room Air Intake/Output Intake/Output: Intake & Output 02/11/24 02/12/24 02/13/24 02/14/24 23:59 23:59 23:59 23:59 Intake Total 2858 2889.5 914 930 Output Total 650 Balance 2208 2889.5 914 930 Meds/Results Medications: Active Medications Generic Name Dose Route Start Last Admin Trade Name Freq PRN Reason Stop Dose Admin Benzocaine 1 lozenge 02/10/24 12:14 02/11/24 16:17 Benzocaine/Menthol (*Bkc) 18 Ea Lozenge PO 1 lozenge PRN PRN Administration Sore Throat Citalopram Hydrobromide 10 mg 02/14/24 11:00 02/14/24 11:32 Citalopram Hydrobromide 10 Mg Tablet PO 10 mg QAM JOSH Administration Enoxaparin Sodium 40 mg 02/11/24 09:00 02/14/24 09:26 Enoxaparin 40 Mg/0.4 Ml Syringe SUB-Q 40 mg DAILY JOSH Administration Hydralazine HCl 10 mg 02/10/24 09:46 Hydralazine Hcl 20 Mg/Ml Vial IV PUSH Q8H PRN Blood Pressure - High Ibuprofen 400 mg/ Sodium 104 mls @ 208 mls/hr 02/10/24 16:37 02/13/24 04:45 Chloride IVPB Infused Q6H PRN Infusion Pain Rated 4-6 Lorazepam 1 mg 02/10/24 12:13 02/12/24 18:58 Lorazepam Inj (*Crx) 2 Mg/Ml Vial IV PUSH 1 mg Q6H PRN Administration Anxiety Losartan Potassium 50 mg 02/14/24 11:00 02/14/24 11:32 Losartan Potassium 50 Mg Tablet PO 50 mg DAILY JOSH Administration Morphine Sulfate 2 mg 02/10/24 12:15 Morphine Sulfate (*Crx) 4 Mg/Ml Inj IV PUSH Q2H PRN Pain Rated 7-10 Pantoprazole Sodium 40 mg 02/11/24 09:00 02/14/24 09:26 Pantoprazole Sodium Iv 40 Mg Vial IV PUSH 40 mg QAM JOSH Administration Phenol 1 spray 02/10/24 12:34 02/11/24 16:18 Phenol/Sod Pheno [place] Martinez (*Bkc) MUCOUS MEM 1 spray PRN PRN Administration Sore Throat Radiology Results: ITS Impressions Abdomen/Pelvis CT 02/10/24 06:41 IMPRESSION: 1. Small bowel obstruction with transition point in the terminal ileum. NG Tube Placement 02/10/24 14:37 IMPRESSION: 1. Fluoroscopy guided nasogastric tube placement with tip in the stomach. Abdomen X-Ray 02/11/24 08:21 IMPRESSION: NO ACUTE ABDOMINAL FINDINGS. Small Bowel X-Ray 02/12/24 14:02 IMPRESSION: 1. Dilated small bowel with delayed passage of contrast to the colon, consistent with distal partial obstruction versus adynamic ileus.
[2024-02-14 14:00] VITALS: BP 119/78; PULSE 62; RESP 18; TEMP 36.7; O2SAT 100
--- NOTE | 2024-02-14 15:54 | PC.NURSE ---
Pt is A&O4 female who has participated and contributed in plan of care. Pt had NG tube removed at approx 15:30 on 02/13/2024. Pt was placed on clear liquid diet and has tolerated well. Pt was advanced to full liquid with lunch and continues to tolerate well. Pt denies any pain, nausea, or vomiting. Pt reports still having BM's. Pt has been compliant with care and continues to participate in care planning. Pt has had slightly elevated BP, provider is aware. Pt home meds restarted. Pt hopeful to D/C later this evening. Will continue monitor pt for any changes in status.
--- NOTE | 2024-02-14 17:06 | P.DS_ITS ---
DS: Admitting Diagnosis Discharge Date 02/14/24 Admitting Diagnosis Abdominal pain DS: Discharge Diagnosis Discharge Diagnosis (1) SBO (small bowel obstruction): Code(s): K56.609 - Unspecified intestinal obstruction, unspecified as to partial versus complete obstruction Status: Acute (2) HTN (hypertension), benign: Code(s): I10 - Essential (primary) hypertension Status: Acute (3) Anxiety: Code(s): F41.9 - Anxiety disorder, unspecified Status: Acute (4) Ovarian cyst: Code(s): N83.209 - Unspecified ovarian cyst, unspecified side Status: Acute DS: Summary Hospital Course Reason for hospitalization: 49yo female with HTN and anxiety here for abdominal pain. Please see H&P for details. Hospital Course: Patient presents with abdominal pain. CT scan shows small bowel obstruction with transition point at the terminal ileum. She has been having prior bowel symptoms. She was able to tolerate NG tube placement and placed to suction. General surgery was consulted. KUB the next day showed normal bowel gas pattern. SBFT showing dilated small bowel with delayed passage of contrast to the colon, consistent with distal partial obstruction versus adynamic ileus. She had multiple BMs from the contrast. She was started on clear liquids and advanced slowly. She was up walking in the halls frequently. Patient with history of hypertension and is on losartan. Patient's blood pressure was monitored closely and remained reasonable well controlled. We resumed losartan when she was able to take oral intake. Patient with a history of anxiety. She has tapered herself off of citalopram but has had increasing anxiety symptoms. She wants to go back on citalopram at the 10 mg level. Patient would like to resume citalopram here so this was ordered. Patient noted to have a left ovarian cyst most likely follicular by CT. She was able to tolerate oral intake. She overall did well and was able to be discharged home on 02/14/24. Status at Discharge Cognitive/behavioral status at discharge: stable Time Spent with Patient Time attestation: Total time spent providing and/or coordinating discharge services: 32 minutes Time spent: Greater than 30 minutes Exam Narrative: AF 98.8 145/82 60 12 99% ra Gen - NARD Chest - CTA bilaterally, nml RR CV - RRR S1/S2 Abd - Soft, ND, NT. +BS Ext - No pedal edema Psych - Nml mood and affect Skin - Warm and dry Discharge Plan Discharge Attending physician on discharge: Titus Arriola Consulting providers: Jamey Wilson Discharging Clinician: Titus Arriola Anticipated Discharge Date/Time: 02/14/24 17:11 Patient Disposition: Home, Self-Care Activity: as tolerated Diet: as tolerated Discharge Instructions: Diet instructions: * Maintain full liquid/soft diet for 2-3 more days once at home. * If no significant nausea and bowels are moving, can advance to regular diet after 2 days. * Return to ED if bloating/nausea return, or unable to pass gas or have bowel movement. Follow-up with your primary care provider in 1-2 weeks. Please call for appointment. Thank you for using [facility] for your health care needs. Patient Instructions: Antibiotic Form Stand Alone Forms: General Discharge Information Follow-up/Referrals: Estrella Palmer PA-C [Primary Care Provider] - Call for Appointment Discharge Medications: Continued losartan 50 mg tablet 50 mg PO DAILY Qty: 30 0RF Rx Instructions: Dose increased 01/14/24 citalopram [Celexa] 10 mg tablet 10 mg PO DAILY Qty: 30 0RF Held ferrous sulfate 324 mg (65 mg iron) tablet,delayed release (DR/EC) 324 mg PO DAILY Hold Instructions: HOLD - resume when okay with your doctor Discontinued ibuprofen 200 mg tablet 200 mg PO Q6H PRN (Reason: headaches) Date of admission: 02/10/24 08:31 Primary Care Provider: Estrella Palmer I. Admitting Provider: Titus Arriola Attending physician on admission: Titus Arriola Condition: Stable Hospitalist MIPS Heart Failure (Exclusion) Patient has history of Heart Transplant or Left Ventricular Assistive Device?: No IF YES, STOP HERE Heart Failure (Qualifier) Patient has current or prior documentation of LVEF less than or equal to 40%, or mod/servere depressed LVSF?: No IF NO, STOP HERE
== END 2024-02-14 19:00 | disposition home or self-care (01) | DRG 390 ==
LOC: ANHED 08:34 → ANH3MEDSUR 09:34
PROVIDERS: Student in an Organized Health Care Education/Training Program; Admitting Provider Internal Medicine; Emergency Provider Emergency Medicine; PCP Physician Assistant Medical; Visit Provider Internal Medicine
DX: K56.609 Unspecified intestinal obstruction, unspecified as to partial versus complete obstruction (principal); I10 Essential (primary) hypertension; R51.9 Headache, unspecified; N83.02 Follicular cyst of left ovary; F41.9 Anxiety disorder, unspecified
CPT/HCPCS: 36415; 74019; 74177; 74250; 80048; 80053; 81001; 81025; 83690; 83735; 85025; 96361; 96374; 96375; 99285; A9270; J1171; J1200; J1650; J1741; J2060; J2405; J2470; J2543; J2765; J3480; J7030; J7120; Q9967

== ENCOUNTER 2024-06-10 10:57 | Outpatient (CLI) | payer SELFPAY ==
--- NOTE | ~2024-06-10 | MM_ITS ---
EXAMINATION: MM screening [facility] BI w pooja HISTORY: Screening TECHNIQUE: Craniocaudal and mediolateral oblique 3-D tomosynthesis images were obtained and synthetic 2-D images were generated. CAD analysis was submitted and interpreted. COMPARISON: Comparison to multiple prior studies sequentially, with oldest reviewed study dated 03/17. BREAST PARENCHYMAL COMPOSITION: Not dense: There are scattered areas of fibroglandular density. FINDINGS: There is no evidence of suspicious mass, calcification, or architectural distortion to sugg est malignancy in either breast. There has been no suspicious interval change. IMPRESSION: 1. No mammographic evidence of malignancy. 2. Recommend routine screening mammography in one year. BI-RADS Category 1: Negative Reviewed, dictated and finalized at location B. [employer] COORDINATOR
== END 2024-06-10 10:58 | disposition home or self-care (01) ==
PROVIDERS: PCP Nurse Practitioner; Visit Provider Nurse Practitioner
DX: Z12.31 Encounter for screening mammogram for malignant neoplasm of breast (principal)
CPT/HCPCS: 77063; 77067